=== PATIENT | male | born 1935 | race Two or more races ===

== ENCOUNTER 2017-02-10 10:51 | Inpatient (IN) | payer MEDICARE, OTHER ==
[~2017-02-10] VITALS: Ht 167.6 cm; Wt 100.0 kg
[~2017-02-10 10:51] MED LIST: ASPI-664 PO; ATOR40TA68 PO; CARV25TA79 PO; CLOP75TA27 PO; DONE10TA7 PO; FURO20TA3 PO; GLIM4TAB PO; HYDR-3671 PO; ICOS1CAP PO; ISOS120T15 PO; LOSA1TAB19 PO; SITA100T8 PO; TAMS0.4C2 PO; VORT10TA PO
[2017-02-10] MEDS ORDERED: ONDANSETRON 4 MG INJ IV STA (10:58)
[2017-02-10] MEDS ORDERED: morphine 4 MG/ML VIAL IV STA (10:58)
[2017-02-10 11:25] LABS: ADD SCAN DIFF NO
[2017-02-10 11:30] LABS: BASOPHIL # 0.1 10^3/ul (0.0-0.1); BASOPHILS % 0.7 % (0.0-2.0); EOSINOPHILS # 0.5 10^3/ul (0.0-0.5); EOSINOPHILS % 7.4 % (0.0-7.0); HEMATOCRIT 42.4 % (42.0-52.0); HEMOGLOBIN 13.2 g/dl (14.0-18.0); LYMPHOCYTES % 14.1 % (15.0-51.0); MEAN CORPUSCULAR HEMOGLOBIN 28.4 pg (29.0-33.0); MEAN CORPUSCULAR HGB CONC 31.1 g/dl (32.0-37.0); MEAN CORPUSCULAR VOLUME 91.4 fl (82.0-101.0); MONOCYTE # 0.7 10^3/ul (0.3-0.9); MONOCYTES % 9.5 % (0.0-11.0); NEUTROPHIL # 4.6 10^3/ul (1.6-7.5); NEUTROPHILS % 67.6 % (39.0-77.0); PLATELET COUNT 138 10^3/UL (140-415); RED BLOOD COUNT 4.64 10^6/ul (4.70-6.10); RED CELL DISTRIBUTION WIDTH 14.4 % (11.5-14.5); WHITE BLOOD COUNT 6.9 10^3/ul (4.8-10.8)
[2017-02-10 11:35] LABS: MEAN PLATELET VOLUME 10.4 fl (7.4-10.4)
--- NOTE | 2017-02-10 11:44 | RADRPT ---
PROCEDURE: XR Chest. CLINICAL INDICATION: Chest pain. TECHNIQUE: PA and Lateral views of the chest were obtained. COMPARISON: Chest x-ray 09/28/2013 02:09 p.m. FINDINGS: The soft tissues are normal. There are degenerative osteophytes in the thoracic spine. The heart i s enlarged. The cardiomediastinal silhouette and hilar structures are normal. The pulmonary vascula ture is increased. There is a left-sided aorta. There are perihilar and basilar infiltrates suspicio us for pulmonary edema. These were not identified on the prior study. The costophrenic angles are obscured. IMPRESSION: 1. Cardiomegaly with congestive heart failure and interstitial pulmonary edema developing since 09/07. 2. Small pleural effusions are not excluded. 3. Spondylosis of the thoracic spine. RPTAT:AAJJ Physician Zehra Date Time Electronically viewed and signed by Vasu Lenz Physician on 02/10/2017 11:44 LUCY/
[2017-02-10 11:57] LABS: INR 1.01; PROTIME 13.3 Sec (12.2-14.2)
[2017-02-10] MEDS ORDERED: FUROSEMIDE 40 MG INJ IV ONE (12:00)
[2017-02-10] MEDS ORDERED: ONDANSETRON 4 MG INJ IV PRN ×2 (12:00→13:00)
[2017-02-10] MEDS ORDERED: ACETAMINOPHEN 325 MG TAB PO PRN ×2 (12:00→13:00)
[2017-02-10 12:01] LABS: CALCIUM 9.1 mg/dl (8.4-10.2); CREATININE 3.35 mg/dl (0.61-1.24); POTASSIUM 5.2 mmol/L (3.5-5.1)
[2017-02-10 12:12] LABS: TROPONIN-I 0.018 ng/ml (0.00-0.12)
[2017-02-10 12:46] VITALS: TEMP 97.8
--- NOTE | 2017-02-10 12:47 | ERA ---
ER Documentation Chief Complaint Date/Time DATE: 02/10/17 TIME: 12:44 Chief Complaint cp x 2 hours HPI Patient is an 81-year-old male with hypertension and diabetes who presents with chest pain. Chest pain is been there for the past 2 hours. The patient was brought in by ambulance. The patient was given 2 sprays of nitroglycerin by paramedics which made his pain better. He was not given aspirin because he has an allergy. Upon review of old medical records this is the patient's third visit to the ER since 2012. ROS All systems reviewed and are negative except as per history of present illness. Medications Home Meds Reported Medications Atorvastatin* (Atorvastatin*) 40 Mg Tablet, 40 MG PO DAILY, #30 TAB 08/16/16 Aspirin* (Aspirin* EC) 81 Mg Tablet.dr, 81 MG PO DAILY, TAB 08/16/16 Glimepiride* (Glimepiride*) 4 Mg Tablet, 4 MG PO WITH BREAKFAST, TAB 08/16/16 Clopidogrel Bisulfate (Clopidogrel) 75 Mg Tablet, 75 MG PO DAILY, #30 TAB 08/16/16 Carvedilol* (Carvedilol*) 25 Mg Tablet, 25 MG PO BID, #60 TAB 08/16/16 Losartan-Hydrochlorothiazide (Losartan-HCTZ) 50-12.5 Mg Tab, 1 TAB PO DAILY, TAB 08/16/16 Tamsulosin Hcl* (Tamsulosin Hcl*) 0.4 Mg Cap.er.24h, 0.4 MG PO DAILY, CAP 08/16/16 Hydralazine Hcl* (Hydralazine Hcl*) 25 Mg Tab, 25 MG PO, #120 TAB 08/16/16 Donepezil* (Donepezil*) 10 Mg Tablet, 10 MG PO DAILY, #30 TAB 08/16/16 Isosorbide Mononitrate* (Isosorbide Mononitrate*) 120 Mg Tab.sr.24h, 120 MG PO DAILY, TAB.SA 08/16/16 Furosemide* (Furosemide*) 20 Mg Tablet, 20 MG PO DAILY, #60 TAB 08/16/16 Sitagliptin* (Januvia*) 100 Mg Tablet, 100 MG PO DAILY, #30 TAB 08/16/16 Vortioxetine Hydrobromide (Brintellix) 10 Mg Tablet, 10 MG PO DAILY, TAB 08/16/16 Icosapent Ethyl (VASCEPA) 1 Gm Capsule, 1 GM PO, CAP 08/16/16 Allergies Allergies: Coded Allergies: aspirin (Verified Allergy, Mild, rash, 02/10/17) PMhx/Soc History of Surgery: Yes (PART OF COLON REMOVED, HEART CATH WITH STENT) Anesthesia Reaction: No Hx Neurological Disorder: No Hx Respiratory Disorders: No Hx Cardiac Disorders: Yes (CAD) Hx Psychiatric Problems: No Hx Miscellaneous Medical Probl: Yes (DM) Hx Alcohol Use: No Hx Substance Use: No Hx Tobacco Use: No Smoking Status: Never smoker FmHx Family History: No diabetes Physical Exam Vitals Vital Signs Date Time Temp Pulse Resp B/P Pulse Ox O2 Delivery O2 Flow Rate FiO2 02/10/17 11:32 Nasal Cannula 3 02/10/17 10:51 97.8 54 18 174/73 88 Physical Exam Const: No acute distress Head: Atraumatic Eyes: Normal Conjunctiva ENT: Normal External Ears, Nose and Mouth. Neck: Full range of motion..~ No meningismus. Resp: Clear to auscultation bilaterally Cardio: Regular rate and rhythm, no murmurs Abd: Soft, non tender, non distended. Normal bowel sounds Skin: No petechiae or rashes Back: No midline or flank tenderness Ext: 2+ pitting edema bilateral lower extremity Neur: Awake and alert Psych: Normal Mood and Affect Result Diagram: 02/10/17 1108 02/10/17 1108 Results 24 hrs Laboratory Tests Test 02/10/17 11:08 White Blood Count 6.910^3/ul Red Blood Count 4.6410^6/ul Hemoglobin 13.2g/dl Hematocrit 42.4% Mean Corpuscular Volume 91.4fl Mean Corpuscular Hemoglobin 28.4pg Mean Corpuscular Hemoglobin Concent 31.1g/dl Red Cell Distribution Width 14.4% Platelet Count 30921^3/UL Mean Platelet Volume 10.4fl Neutrophils % 67.6% Lymphocytes % 14.1% Monocytes % 9.5% Eosinophils % 7.4% Basophils % 0.7% Nucleated Red Blood Cells % 0.0/100WBC Neutrophils # 4.610^3/ul Lymphocytes # 1.010^3/ul Monocytes # 0.710^3/ul Eosinophils # 0.510^3/ul Basophils # 0.110^3/ul Nucleated Red Blood Cells # 0.010^3/ul Prothrombin Time 13.3Sec Prothrombin Time Ratio 1.0 INR International Normalized Ratio 1.01 Activated Partial Thromboplast Time 28.0Sec Sodium Level 138mmol/L Potassium Level 5.2mmol/L Chloride Level 104mmol/L Carbon Dioxide Level 25mmol/L Anion Gap 14 Blood Urea Nitrogen 68mg/dl Creatinine 3.35mg/dl Glucose Level 270mg/dl Calcium Level 9.1mg/dl Troponin I 0.018ng/ml Current Medications Medications (Trade) Dose Ordered Sig/Tariq Route PRN Reason Start Time Stop Time Status Last Admin Dose Admin Morphine Sulfate (morphine) 4 mg ONCE STAT IV 02/10/17 10:58 02/10/17 11:00 DC 02/10/17 11:05 Ondansetron HCl (Zofran Inj) 4 mg ONCE STAT IV 02/10/17 10:58 02/10/17 11:00 DC 02/10/17 11:05 Furosemide (Lasix) 40 mg ONCE ONCE IV 02/10/17 12:00 02/10/17 12:01 DC 02/10/17 11:53 Ondansetron HCl (Zofran Inj) 4 mg ER BRIDGE PRN IV NAUSEA AND/OR VOMITING 02/10/17 12:00 02/11/17 11:59 Acetaminophen (Tylenol Tab) 650 mg ER BRIDGE PRN PO MILD PAIN/FEVER 02/10/17 12:00 02/11/17 11:59 Procedures/MDM EKG read by me: Rate/Rhythm: Regular rate and rhythm at a normal rate Intervals: Normal Impression: No evidence of ST elevations or depressions at this time PROCEDURE: XR Chest. CLINICAL INDICATION: Chest pain. TECHNIQUE: PA and Lateral views of the chest were obtained. COMPARISON: Chest x-ray 09/28/2013 02:09 p.m. FINDINGS: The soft tissues are normal. There are degenerative osteophytes in the thoracic spine. The heart is enlarged. The cardiomediastinal silhouette and hilar structures are normal. The pulmonary vasculature is increased. There is a left-sided aorta. There are perihilar and basilar infiltrates suspicious for pulmonary edema. These were not identified on the prior study. The costophrenic angles are obscured. IMPRESSION: 1. Cardiomegaly with congestive heart failure and interstitial pulmonary edema developing since 09/28/2013. 2. Small pleural effusions are not excluded. 3. Spondylosis of the thoracic spine. RPTAT:AAJJ Physician Zehra Date Time Electronically viewed and signed by Vasu Lenz Physician on 02/10/2017 11:44 Patient is a 81-year-old male with cardiac risk factors who presents with chest pain and shortness of breath. The patient also has bilateral lower extremity swelling. I am concerned about acute coronary syndrome as well as acute CHF. The patient will be admitted to the care of Dr. Coates from the panel team for further evaluation. The patient will be admitted to a telemetry bed. The patient has not been given aspirin because he has an allergy. He was given Lasix. Departure Diagnosis: Primary Impression: CHF (congestive heart failure) Qualified Code: I50.9 - Acute congestive heart failure, unspecified congestive heart failure type Additional Impression: Chest pain Qualified Code: R07.9 - Chest pain, unspecified type Condition: RADHA Nunez MD February 10, 2017 12:47
[2017-02-10] MEDS ORDERED: NA POLYST SULFON 15 GM/60 ML BTL PO ONE (13:00)
[2017-02-10] MEDS ORDERED: NACL 0.9% 3 ML SYG IV SCH (13:00)
[2017-02-10] MEDS ORDERED: MAGNESIUM HYDROXIDE 30ML CUP PO PRN (13:00)
[2017-02-10] MEDS ORDERED: HYDROCODONE/APAP (5/325) TAB PO PRN (13:00)
[2017-02-10] MEDS ORDERED: BISACODYL (EC) 5 MG TAB PO PRN (13:00)
[2017-02-10] MEDS ORDERED: HYPOGLYCEMIA PROTOCOL when Glucose is <70 mg/dL or symptomatic <90 mg/dL. XX ONE (13:00)
[2017-02-10] MEDS ORDERED: hydrALAzine 20 MG INJ IV PRN (13:00)
[2017-02-10] MEDS ORDERED: Discontinue Glyburide, Glipizide, and/or Glimepiride prior to starting Insulin XX ONE (13:00)
--- NOTE | 2017-02-10 13:29 | RADRPT ---
PROCEDURE: Renal US. CLINICAL INDICATION: Acute kidney injury. TECHNIQUE: Multiple sonographic images of the kidneys and urinary bladder were obtained. The imag es were reviewed on a PACS workstation. COMPARISON: No prior studies are available for comparison. FINDINGS: The right kidney measures 8.6 cm. The left kidney measures 9.3 cm. There is no renal mass. There is no hydronephrosis. There is no renal calculus. Renal parenchymal thickness is normal bilaterally. Both kidneys are hyperechoic consistent with medical renal disease. The perirenal regions are normal with no fluid collection or mass. The urinary bladder is unremarkable. IMPRESSION: 1. Bilateral hyperechoic kidneys consistent with medical renal disease. 2. Otherwise normal renal ultrasound. RPTAT: QQ .Negro Reynolds MD, Date Time Electronically viewed and signed by .Negro Reynolds MD, on 02/10/2017 13:29 .R/
[2017-02-10] MEDS ORDERED: GLUCOSE GEL 15 GRAM TUBE PO PRN ×2 (13:30)
[2017-02-10] MEDS ORDERED: GLUCOSE GEL 15 GRAM TUBE BUCCAL PRN (13:30)
[2017-02-10] MEDS ORDERED: GLUCAGON 1 MG INJ IM PRN (13:30)
[2017-02-10] MEDS ORDERED: DEXTROSE 50% 50 ML SYRINGE IV PRN ×2 (13:30)
--- NOTE | 2017-02-10 13:30 | CONS ---
Date/Time of Note Date/Time of Note DATE: 02/10/17 TIME: 13:10 Assessment/Plan Assessment/Plan Additional Assessment/Plan Acute decompensated congestive heart failure Coronary artery disease Acute kidney injury Hypertension Diabetes -Patient with evidence of decompensated congestive heart failure and worsening renal function. Would hold nephrotoxic medications. No IV diuretics as renal function permits, check renal ultrasound, renal consultation. To aspirin and Plavix therapy, statin therapy, beta-umesh as heart rate and blood pressure permits. Check echocardiogram Consultation Date/Type/Reason Admit Date/Time Type of Consultation: cv Reason for Consultation Shortness of breath progressing over the past 4-5 days Hx of Present Illness This is an 81-year-old male with past medical history of coronary artery disease , congestive heart failure, renal dysfunction who presents with progressive worsening shortness of breath over the past 4-5 days and lower extremity swelling. Symptoms are worse with exertion and improved at rest. He also complains of lower extremity edema as well progressing over the past 4-5 days. He has intermittent chest pain off and on over the past year. He tells me he is compliant with his medications but is not sure what medicines he takes. It is unclear he is compliant with diet. He was evaluated in [facility] at that time and recommendations were made for coronary angiogram. Secondary to cost, he came to [facility] for further evaluation and care. He did have an outpatient nuclear cardiac perfusion study performed in July with evidence of infarct, no ischemia. Patient had continued symptoms of shortness of breath and was planned for outpatient cardiac catheterization. Unfortunately, on day of procedure, patient with acute kidney injury and was recommended to follow-up with nephrology as an outpatient. 12 point review of systems was performed with all pertinent positives and negatives mentioned above and all else is negative Past Medical History Medical History: congestive heart failure, coronary artery disease, diabetes, hypertension, renal disease Past Surgical History Past Surgical Hx: angioplasty Family History Significant Family History: no pertinent family hx Social History Alcohol Use: none Smoking Status: Never smoker Other Social History Lives at home Exam/Review of Systems Vital Signs Vitals Vital Signs Date Time Temp Pulse Resp B/P Pulse Ox O2 Delivery O2 Flow Rate FiO2 02/10/17 12:46 97.8 79 18 173/83 98 Nasal Cannula 3.0 Exam nad Constitutional: alert, obese, oriented Head: normocephalic Neck: supple Respiratory: crackles/rales, other (Coarse breath sounds bilaterally, no wheezing) Cardiovascular: other (S1-S2 heard), regular rate and rhythm Gastrointestinal: bowel sounds, non-tender, soft Extremities: edema, other (No cyanosis) Results Result Diagram: 02/10/17 1108 02/10/17 1108 Results 24 hrs Laboratory Tests Test 02/10/17 11:08 White Blood Count 6.9 # Red Blood Count 4.64 L Hemoglobin 13.2 L Hematocrit 42.4 Mean Corpuscular Volume 91.4 Mean Corpuscular Hemoglobin 28.4 L Mean Corpuscular Hemoglobin Concent 31.1 L Red Cell Distribution Width 14.4 Platelet Count 138 L Mean Platelet Volume 10.4 # Neutrophils % 67.6 Lymphocytes % 14.1 L Monocytes % 9.5 Eosinophils % 7.4 H Basophils % 0.7 Nucleated Red Blood Cells % 0.0 Neutrophils # 4.6 Lymphocytes # 1.0 Monocytes # 0.7 Eosinophils # 0.5 Basophils # 0.1 Nucleated Red Blood Cells # 0.0 Prothrombin Time 13.3 Prothrombin Time Ratio 1.0 INR International Normalized Ratio 1.01 Activated Partial Thromboplast Time 28.0 Sodium Level 138 Potassium Level 5.2 H Chloride Level 104 Carbon Dioxide Level 25 Anion Gap 14 Blood Urea Nitrogen 68 H Creatinine 3.35 H Glucose Level 270 H Calcium Level 9.1 Troponin I 0.018 Medications Medications Current Medications Ondansetron HCl (Zofran Inj) 4 mg Q6H PRN IV NAUSEA AND/OR VOMITING; Start 02/10 at 13:00 Aspirin (Aspirin) 81 mg DAILY PO ; Start 02/11/17 at 09:00 Acetaminophen (Tylenol Tab) 650 mg Q6H PRN PO PAIN LEVEL 1-3 OR FEVER; Start at 13:00 Acetaminophen/ Hydrocodone Bitart ([place] (5/325)) 1 tab Q6H PRN PO PAIN LEVEL 4 -6; Start 02/10/17 at 13:00 Morphine Sulfate (morphine) 2 mg Q4H PRN IV PAIN LEVEL 7-10; Start 02/10/17 at 13:00 Magnesium Hydroxide (Milk Of Mag) 30 ml DAILY PRN PO CONSTIPATION; Start at 13:00 Bisacodyl (Dulcolax) 5 mg DAILY PRN PO CONSTIPATION; Start 02/10/17 at 13:00 Heparin Sodium (Porcine) (Heparin (5000 Units/0.5 ml)) 5,000 unit Q8 SC ; Start 02/10/17 at 14:00 Atorvastatin Calcium (Lipitor) 40 mg DAILY PO ; Start 02/11/17 at 09:00 Carvedilol (Coreg) 25 mg BID PO ; Start 02/10/17 at 21:00 Clopidogrel Bisulfate (plaVIX) 75 mg DAILY PO ; Start 02/11/17 at 09:00 Donepezil HCl (Aricept) 10 mg DAILY PO ; Start 02/11/17 at 09:00 Isosorbide Mononitrate (Imdur) 120 mg DAILY PO ; Start 02/11/17 at 09:00 Tamsulosin HCl (Flomax) 0.4 mg DAILY PO ; Start 02/11/17 at 09:00 Miscellaneous Information 100 mg DAILY PO ; Start 02/11/17 at 09:00; Status UNV Hydralazine HCl (Apresoline) 10 mg Q4H PRN IV SBP>160; Start 02/10/17 at 13:00 Cephalexin (Keflex) 500 mg Q8 PO ; Start 02/10/17 at 14:00 Hydralazine HCl (Apresoline) 25 mg TID PO ; Start 02/10/17 at 13:00 Insulin Glargine (Lantus) 20 unit DAILY@20 SC ; Start 02/10/17 at 20:00 Miscellaneous Information 1 ea NOTE XX ; Start 02/10/17 at 13:30 Glucose (Glutose) 15 gm Q15M PRN PO DECREASED GLUCOSE; Start 02/10/17 at 13:30 Glucose (Glutose) 22.5 gm Q15M PRN PO DECREASED GLUCOSE; Start 02/10/17 at 13:30 Dextrose (D50w Syringe) 25 ml Q15M PRN IV DECREASED GLUCOSE; Start 02/10/17 at 13:30 Dextrose (D50w Syringe) 50 ml Q15M PRN IV DECREASED GLUCOSE; Start 02/10/17 at 13:30 Glucagon (Glucagen) 1 mg Q15M PRN IM DECREASED GLUCOSE; Start 02/10/17 at 13:30 Glucose (Glutose) 15 gm Q15M PRN BUCCAL DECREASED GLUCOSE; Start 02/10/17 at 13: 30 Procedures Procedures ECG demonstrates sinus bradycardia at 57 bpm, QRS 92 ms, nonspecific STT wave abnormalities Balaji Vigil DO February 10, 2017 13:21
--- NOTE | 2017-02-10 13:38 | CONS ---
DATE OF ADMISSION: 02/10/2017 DATE OF CONSULTATION: 02/10/2017 TYPE OF CONSULTATION: Nephrology. REFERRING PHYSICIAN: Dr. Coates. REASON FOR CONSULTATION: Acute kidney injury versus acute kidney injury on chronic kidney disease, acute hyperkalemia, acute CHF exacerbation with fluid overload causing pulmonary edema. HISTORY OF PRESENT ILLNESS: This is an 81-year-old male with a past medical history of coronary art vicente disease, hypertension, history of previous cardiac catheterization and had a stent placement, di abetes mellitus, history of previous colon resection. The patient presented to the [facility] because he was brought in by paramedics with a complaint of chest pain, which has been going on for the last 2 hours. He was also complaining of shortness of breath. The patient was giv en 2 days of nitroglycerin supply by paramedics, which made his pain better. He was not given aspir in upon arrival to the emergency room. In the emergency room, he was complaining of shortness of br eath but his saturation was normal. The patient was noted to have BUN of 68, creatinine 3.3, potass ium 5.2 on admission, his chest x-ray shows congestive heart failure with interstitial pulmonary luis m ma and small pleural effusion. Renal has been consulted for acute kidney injury versus acute kidney injury on chronic kidney disease and pulmonary edema. He is also noted to have hyperkalemia. REVIEW OF SYSTEMS: Positive for chest pain, shortness of breath. Other review of systems has been obtained and is negative except what is mentioned in the history of present illness. 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 PAST SURGICAL HISTORY: History of cardiac catheterization with a stent placement, history of previo us colon surgery. SOCIAL HISTORY: At this time, patient denies any smoking, alcohol or recreational drug use. FAMILY HISTORY No smoking, alcohol or recreational. FAMILY HISTORY: No family history of chronic kidney disease in the family. He also denies any prev ious history of kidney stones. PHYSICAL EXAMINATION: VITAL SIGNS: Temperature 97.8, heart rate 79, respiration 18, blood pressure 123/83, saturation is 88% on room air, 98% on 3 liters nasal cannula. GENERAL: Awake, alert, in moderate distress due to hypoxemia and pulmonary edema. HEENT: The pupils are equal, round, reactive to light and accommodation. Extraocular muscles are i ntact. No sclerae icterus. NECK: Supple. Jugular venous distention up to the mid neck. No lymphadenopathy. LUNGS: Have bibasilar crackles present up to the mid lung zones. No wheezing. HEART: S1, S2, with regular rhythm, no murmur. ABDOMEN: Soft, nontender, nondistended. Bowel sounds are present. EXTREMITIES: There is 1 to 2+ pitting edema, no clubbing, no cyanosis. NEUROLOGICAL: Alert, awake x3, follows commands, cranial nerves II through XII intact. Strength se nsations are intact. Reflexes are normal. PSYCHIATRIC: Appropriate affect and mood. SKIN: No rash. LABORATORY DATA/DIAGNOSTIC IMAGING: Sodium 138, potassium 5.2, chloride 104, bicarbonate 25, BUN 68 , creatinine 3.3, glucose 270, calcium 9.1. Troponin x1 negative. PT 13.3, PTT 28, INR 1.01. WBC 6.9, hemoglobin 13.2, platelet count is 138. Chest x-ray done in the emergency room shows cardiomeg dheeraj with congestive heart failure and interstitial pulmonary edema, small pleural effusion. IMPRESSION: This is an 81-year-old male who has been getting admitted for acute congestive heart fa ilure exacerbation and acute pulmonary edema. He is noted to have acute renal failure with hyperkal emia and renal has been consulted for: 1. Acute kidney injury on possible chronic kidney disease secondary to cardiorenal syndrome in the setting of CHF exacerbations. 2. Acute pulmonary edema secondary to congestive heart failure exacerbation and renal failure. 3. Acute hyperkalemia secondary to acute kidney injury on chronic kidney disease. 4. 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 5. History of hypertension. 6. History of hyperlipidemia. 7. History of coronary artery disease, status post previous coronary stent placement. 8. History of diabetes mellitus type 2. PLAN: 1. The patient received Lasix 40 mg in the emergency room. I will order Lasix 20 mg IV b.i.d. 2. I will order his CKD workup including urine sodium, urine protein/creatinine ratio, urine eosino phils, uric acid, PSA which a.m. labs. 3. Continue the Lasix 20 mg IV b.i.d. 4. ____. Continue him on hydralazine 25 mg to 50 mg p.o. t.i.d. He is also started on Coreg 25 mg p.o. b.i.d. 5. IV hydralazine p.r.n. systolic blood pressure more than 160. 6. Renal ultrasound to better assess the kidney size and echogenicity and to rule out hydronephrosi s. Patient likely has chronic kidney disease. 7. The patient is currently seen in the emergency room and will be followed up along with his cours e in the hospital. Once again, thank you, Dr. Coates, for this consultation. Total time spent in this patient's evaluation making assessment and plan, coming up with consultatio n and recommendations, discussed with the patient's family at bedside and communicating with the [facility] staff took more than 90 minutes. Dictated By: CHANELL TRAYLOR MD, KP/KRISTINA Conf#: [id number] DID#: [id number]
[2017-02-10 13:40] VITALS: BP 200/88; PULSE 60; RESP 20
[2017-02-10 13:42] LABS: ADD UMIC YES; URINE BILIRUBIN (Dip) NEGATIVE (NEGATIVE); URINE BLOOD (Dip) TRACE (NEGATIVE); URINE COLOR LT. YELLOW (YELLOW); URINE KETONES (Dip) NEGATIVE (NEGATIVE); URINE LEUKOCYTE ESTERASE (Dip) NEGATIVE (NEGATIVE); URINE NITRITE (Dip) NEGATIVE (NEGATIVE); URINE TOTAL PROTEIN (Dip) 2+ (NEGATIVE); URINE UROBILINOGEN (Dip) 0.2 E.U./dL (0.1-1.0)
--- NOTE | 2017-02-10 13:45 | RADRPT ---
PROCEDURE: US Lower extremity Venous. CLINICAL INDICATION: B/L LE edema. TECHNIQUE: Multiple sonographic images of the bilateral lower extremity deep venous system was obt ained utilizing grayscale, color-flow, compressive sonography and doppler imaging with augmentation. The images were reviewed on a PACS workstation. COMPARISON: None. FINDINGS: There is normal compressibility and flow within the bilateral common femoral, deep femoral, superfic ial femoral and popliteal veins. The deep veins the calf were incompletely visualized. IMPRESSION: No sonographic evidence for deep venous thrombosis in the bilateral lower extremities. Physician Chris Date Time Electronically viewed and signed by Physician Chris on 02/10/2017 13:45 ML/
[2017-02-10 13:52] LABS: PROTEIN/CREAT RATIO 4.4 RATIO
[2017-02-10 13:54] LABS: THYROID STIMULATING HORMONE 2.18 MIU/L (0.465-4.680)
[2017-02-10 14:05] LABS: SQUAMOUS EPITHELIAL CELL,UR OCCASIONAL
[2017-02-10] MEDS: hydrALAzine 20 MG INJ IV PRN (14:11)
[2017-02-10] MEDS: HEPARIN 5,000 UNIT/0.5 ML VIAL SC SCH ×2 (14:21→22:12)
[2017-02-10 15:00] VITALS: BP 154/66; PULSE 59
--- NOTE | 2017-02-10 16:01 | RADRPT ---
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 Location: [id number] Ref. Physician: DEEPA STEWART Quality: Technically Difficult Study Procedures: Transthoracic echocardiogram with complete 2D, M-Mode, and doppler examination. Indications: Chest Pain. 2D/M Mode Doppler Measurement Value Normal Ranges Measurement Value Normal Ranges LVIDd 2D 5.4 3.5 - 5.6 cm AV Peak Jorden 1.4 m/sec LVIDs 2D 3.9 2.1 - 4.1 cm AV Peak PG 8.2 mmHg LVPWd 2D 1.1 0.6 - 1.1 cm LVOT Peak Jorden 0.6 m/sec IVSd 2D 1.1 0.6 - 1.1 cm LVOT Peak PG 1.4 mmHg AoR Diam 2D 2.7 2.0 - 3.7 cm MV E Peak Jorden 0.5 m/sec EDV 2D 143.4 cm3 MV A Peak Jorden 0.6 m/sec ESV 2D 58.6 cm3 MV E/A 0.9 LA Dimen 2D 4.1 2.3 - 4.0 cm MV Decel Time 174 msec MV Decel [place] 3 MV E/A 0.9 TR Peak Jorden 3.0 m/sec TR Peak PG 37.0 mmHg Findings Left Ventricle: Overall, lower limits of normal left ventricular systolic function. Not all segments visualized. Normal left ventricular cavity size. Left ventricular wall thickness upper limits of normal. Ejection fraction is visually estimated at 50 %. Tissue Doppler/Mitral Doppler indices are consistent with impaired relaxation (Stage I diastolic dysfunction). Right Ventricle: Normal right ventricular size. Normal right ventricular systolic function. Left Atrium: There is mild enlargement of left atrium. LA Dimension4.10 cm. Right Atrium: The right atrium is normal in size. Mitral Valve: Mild mitral leaflet calcification. Mild mitral annular calcification. Trace mitral regurgitation. Aortic Valve: No hemodynamically significant aortic stenosis by doppler. Aortic cusps appear mildly calcified. Trace aortic valve regurgitation. Tricuspid Valve: Normal appearance of the tricuspid valve. Estimated peak PA systolic pressure 40 mmHg. There is mild tricuspid regurgitation. Pulmonic Valve: There is trace pulmonic regurgitation. Pericardium: Normal pericardium with no significant pericardial effusion. Aorta: Normal aortic root. IVC: Normal size and normal respiratory collapse consistent with normal right atrial pressure. Conclusions 1.Overall, lower limits of normal left ventricular systolic function. Not all segments visualized. Normal left ventricular cavity size. Left ventricular wall thickness upper limits of normal. Ejection fraction is visually estimated at 50 %. Tissue Doppler/Mitral Doppler indices are consistent with impaired relaxation (Stage I diastolic dysfunction). 2.Normal right ventricular size. Normal right ventricular systolic function. 3.There is mild enlargement of left atrium. LA Dimension4.10 cm. 4.The right atrium is normal in size. 5.Estimated peak PA systolic pressure 40 mmHg. There is mild tricuspid regurgitation. 6.No significant valvular stenosis or regurgitation seen of remaining visualized valves. 7.Normal pericardium with no significant pericardial effusion. Electronically Signed By: Balaji Vigil 10-Feb-2017 16:00: Patient Name: ANIBAL VASQUEZ Study Date: 10-Feb-2017 [id number]
[2017-02-10 16:15] VITALS: PULSE 59
[2017-02-10] MEDS: CEPHALEXIN 500 MG CAP PO SCH ×2 (16:26→21:52)
[2017-02-10 17:12] VITALS: Ht 167.6 cm; Wt 100.0 kg
--- NOTE | 2017-02-10 17:33 | HP ---
DATE OF ADMISSION: 02/10/2017 TIME OF EVALUATION: 12:30 p.m. REASON FOR ADMISSION: Chest pain. CONSULTANTS: 1. Dr. Balaji Vigil, Cardiology. 2. Dr. Jose Luis Pickett, Nephrology. HISTORY OF PRESENT ILLNESS: This is an 81-year-old Malaysian male with significant past medical history including coronary artery disease with a stent placement, CKD, essential hypertension, DM type II, and morbid obesity, who came to the emergency room with chief complaint of chest pain that started all of a sudden. The patient verbalized the chest pain as substernal with radiation to bilateral upper extremities. The patient also verbalized associated shortness of breath. The patient denied any radiation of the pain to the jaw. The patient denied any associated nausea, diaphoresis, or vomiting. The patient was also complaining of worsening bilateral lower extremity edema. In the emergency room, the patient underwent a chest x-ray that showed cardiomegaly with congestive heart failure, interstitial pulmonary edema developing compared to the CXR on 09/28/2013. The patient's venous Doppler study was negative for any bilateral lower extremity venous Doppler study that was negative for any DVT. The patient was noticed to be in kidney failure with a BUN and creatinine of 68 and 3.375 respectively. The patient's serum blood glucose was 270. The patient was also noticed to have hyperkalemia with a potassium of 5.2. In the emergency room, the patient was treated with oral aspirin and Kayexalate along with hydralazine for blood pressure control. PAST MEDICAL HISTORY: CAD, type 2 diabetes mellitus, essential hypertension, chronic kidney disease, obesity, dyslipidemia. PAST SURGICAL HISTORY: Coronary artery stent placement, segmental colon resection. HOME MEDICATIONS: 1. Donepezil 10 mg p.o. daily. 2. Tamsulosin 0.4 mg p.o. daily. 3. Plavix 75 mg p.o. daily. 4. Atorvastatin 40 mg p.o. daily. 5. Coreg 25 mg p.o. b.i.d. 6. Hydralazine 20 mg p.o. daily. 7. Vascepa 1 gram p.o. daily. 8. Isosorbide mononitrate 120 mg p.o. daily. 9. Losartan with hydrochlorothiazide 50/12.5 mg 1 tablet p.o. daily. 10. Aspirin 81 mg p.o. daily. 11. Brintellix 10 mg p.o. daily. 12. Lasix 20 mg p.o. daily. 13. Glimepiride 4 mg p.o. with breakfast. 14. Januvia 100 mg p.o. daily. ALLERGIES: ASPIRIN. SOCIAL HISTORY: The patient lives at home. Denied any use of tobacco, alcohol , or illicit drug use. REVIEW OF SYSTEMS: A 12-point review of systems was made and the review of systems are negative other than what is mentioned in the history of present illness. PHYSICAL EXAMINATION: VITAL SIGNS: Temperature 97.8, pulse rate of 79, respiratory rate 18, blood pressure 123/83, oxygen saturation 98% on low flow O2. GENERAL: This is morbidly obese male lying in bed in no apparent distress. HEENT: Head: Normocephalic and atraumatic. Eyes: Anicteric sclerae. Conjunctivae clear. ENT: Nasal septum is midline. Oral mucosa is dry. NECK: Supple. No JVD noticed. RESPIRATORY: Bilateral diminished breath sounds. A few fine rales heard bilaterally. No use of accessory muscles of respiration. No wheezing. CARDIAC: Regular rate and rhythm. GASTROINTESTINAL: S1, S2 heard. ABDOMEN: Obese. Bowel sounds hypoactive in all 4 quadrants. GENITOURINARY: Deferred. EXTREMITIES: No cyanosis. No clubbing. Bilateral lower extremity 2 to 3+ pitting edema. Pedal pulses diminished. Bilateral lower extremity erythema. NEUROLOGIC: The patient is awake, alert, and oriented. Cranial nerves are grossly intact. The patient is primarily Malaysian speaking. A certified Malaysian historic interpreter was used during the interview. LABORATORY AND DIAGNOSTIC DATA: WBC 6.9, hemoglobin 13.0, hematocrit 42.4, platelet count 138. Sodium 130, potassium 5.0, chloride 104, carbon dioxide 27 , anion gap 14, BUN 50, creatinine 3.35, glucose 270, calcium 9.1. Troponin is 0.018. BNP 1230. TSH 2.180. Urinalysis: Urine nitrite negative, urine leukocyte esterase negative. Urine glucose 0.25%. Urine total protein 2+. IMPRESSION: This is an 81-year-old Malaysian male with multiple comorbidities, who came to the emergency room with chief complaint of chest pain, was found to have evidence of congestive heart failure, who will be admitted here for further treatment and evaluation. ASSESSMENT AND PLAN: 1. Chest pain. To rule out acute coronary syndrome. The patient has multiple comorbidities including prior history of coronary artery disease with stent placement. The patient will continue on antiplatelet therapy. Serial troponins will be obtained. A cardiology consult will be obtained. A 2D echocardiogram will be obtained to evaluate left ventricular ejection fraction. 2. Acute respiratory failure. Hypoxic. Most probably secondary to underlying congestive heart failure exacerbation. Systolic versus diastolic dysfunction. The patient will be adequately diuresed while carefully monitoring the patient 's renal function. 3. Accelerated hypertension. The patient will be started on antihypertensives including p.r.n. antihypertensives for high blood pressure control. 4. Type 2 diabetes mellitus. Blood sugars uncontrolled. The patient will remain on sliding scale insulin along with premeal and Lantus insulin. A hemoglobin A1c will be obtained to evaluate the blood glucose control over the past few days. 5. Hyperkalemia. The patient also received a single dose of potassium exchange resin. 6. Acute on chronic kidney disease. The patient has underlying chronic kidney disease. The patient was found to have elevated BUN and creatinine more from his baseline. The patient will be followed by nephrology. 7. Bilateral lower extremity edema. Etiology unclear. Bilateral lower extremity venous Doppler study is negative for any DVT will be obtained. The patient will be adequately diuresed. He will be started on antibiotics for B/L LE erythema suggesting cellulitis. 8. Dyslipidemia. The patient will be resumed on statins. A fasting lipid panel will be obtained. Plan. The patient will be admitted to inpatient telemetry floor. The patient will be started on a carbohydrate-controlled, low-cholesterol, low-sodium diet. The patient will remain a FULL CODE. Activities will be with assist. The rest of the patient's management will be based on the clinical course, the results of diagnostic studies, and input sfrom consultants. Based on the patient's clinical presentation, he most probably requires at least 2 midnights' stay for further management and evaluation of his clinical presentation. The case and management of this patient was fully discussed with Dr. Carson. DEEPA CARSON MD, AM/KRISTINA Conf#: [id number] DID#: [id number] VIRGEN
[2017-02-10] MEDS: FUROSEMIDE 20 MG INJ IV SCH (17:42)
[2017-02-10] MEDS: INSULIN ASPART [NOVOLOG] 3 ML PEN SC SCH ×3 (17:49→21:00)
[2017-02-10 19:24] LABS: TROPONIN-I 0.026 ng/ml (0.00-0.12)
[2017-02-10 19:27] LABS: CK-MB 1.13 ng/ml (0.0-2.4)
[2017-02-10 20:00] VITALS: BP 133/60; RESP 18
[2017-02-10 20:10] VITALS: PULSE 67
[2017-02-10] MEDS: morphine 2 MG INJ IV PRN (21:51)
[2017-02-10] MEDS: ISOSORBIDE MONONITRATE(SR)30 MG TAB PO SCH (21:52)
[2017-02-10] MEDS: INSULIN GLARGINE [LANtus] 3 ML PEN SC SCH (22:11)
[2017-02-10 23:30] LABS: TROPONIN-I 0.037 ng/ml (0.00-0.12)
[2017-02-10 23:34] LABS: CK-MB 1.21 ng/ml (0.0-2.4)
[2017-02-11] VITALS (13 sets, daily range): BP systolic 129–160; BP diastolic 59–73; PULSE 58–69; RESP 18–20
[2017-02-11] MEDS: ACCUCHECK AT 2AM (Patients on SS coverage) XX SCH (02:00)
[2017-02-11] MEDS: CEPHALEXIN 500 MG CAP PO SCH ×3 (06:35→21:53)
[2017-02-11] MEDS: FUROSEMIDE 20 MG INJ IV SCH ×2 (06:35→17:16)
[2017-02-11] MEDS: HEPARIN 5,000 UNIT/0.5 ML VIAL SC SCH ×3 (06:40→21:58)
[2017-02-11 07:14] LABS: ADD SCAN DIFF NO
[2017-02-11 07:19] LABS: BASOPHILS % 0.5 % (0.0-2.0); EOSINOPHILS # 0.5 10^3/ul (0.0-0.5); EOSINOPHILS % 6.8 % (0.0-7.0); HEMATOCRIT 42.7 % (42.0-52.0); HEMOGLOBIN 13.3 g/dl (14.0-18.0); LYMPHOCYTES % 13.5 % (15.0-51.0); MEAN CORPUSCULAR HEMOGLOBIN 28.4 pg (29.0-33.0); MEAN CORPUSCULAR HGB CONC 31.1 g/dl (32.0-37.0); MEAN PLATELET VOLUME 10.3 fl (7.4-10.4); MONOCYTE # 0.6 10^3/ul (0.3-0.9); MONOCYTES % 8.2 % (0.0-11.0); NEUTROPHIL # 5.3 10^3/ul (1.6-7.5); NEUTROPHILS % 70.3 % (39.0-77.0); PLATELET COUNT 140 10^3/UL (140-415); RED BLOOD COUNT 4.69 10^6/ul (4.70-6.10); RED CELL DISTRIBUTION WIDTH 14.6 % (11.5-14.5); WHITE BLOOD COUNT 7.5 10^3/ul (4.8-10.8)
[2017-02-11 07:43] LABS: ALBUMIN 3.7 g/dl (3.3-4.9); ALBUMIN/GLOBULIN RATIO 0.97; BILIRUBIN,INDIRECT 0.4 mg/dl (0-1.1); BILIRUBIN,TOTAL 0.4 mg/dl (0.2-1.3); CALCIUM 8.8 mg/dl (8.4-10.2); CHOL/HDL RATIO 4.5 RATIO; CREATININE 3.22 mg/dl (0.61-1.24); PHOSPHORUS 4.9 mg/dl (2.5-4.9); POTASSIUM 5.4 mmol/L (3.5-5.1); TOTAL PROTEIN 7.5 g/dl (6.1-8.1)
[2017-02-11 07:51] LABS: TROPONIN-I 0.057 ng/ml (0.00-0.12)
[2017-02-11] MEDS: INSULIN ASPART [NOVOLOG] 3 ML PEN SC SCH ×7 (08:00→21:00)
[2017-02-11 08:25] LABS: URIC ACID 7.7 mg/dl (3.1-7.9)
[2017-02-11] MEDS: TAMSULOSIN (SR) 0.4 MG CAP PO SCH (08:49)
[2017-02-11] MEDS: ASPIRIN 81 MG TAB PO SCH (08:49)
[2017-02-11] MEDS: ATORVASTATIN 40 MG TAB PO SCH (08:50)
[2017-02-11] MEDS: CLOPIDOGREL 75 MG TAB PO SCH (08:50)
[2017-02-11] MEDS: DONEPEZIL 10 MG TAB PO SCH (08:50)
[2017-02-11] MEDS: LINAGLIPTIN 5 MG TABLET PO SCH (08:50)
[2017-02-11] MEDS: ISOSORBIDE MONONITRATE(SR)30 MG TAB PO SCH ×2 (08:51→20:56)
[2017-02-11 08:56] LABS: PROSTATE SPECIFIC ANTIGEN 3.1 ng/ml (0.0-4.0)
[2017-02-11] MEDS ORDERED: ASPIRIN (EC) 81 MG TAB PO SCH (09:00)
[2017-02-11] MEDS ORDERED: ISOSORBIDE MONONITRATE(SR)60 MG TAB PO SCH (09:00)
[2017-02-11] MEDS ORDERED: NA POLYST SULFON 15 GM/60 ML BTL PO ONE ×2 (09:30→12:00)
--- NOTE | 2017-02-11 10:00 | PN ---
Date/Time of Note Date/Time of Note DATE: 02/11/17 TIME: 09:56 Assessment/Plan VTE Prophylaxis VTE Prophylaxis Intervention: heparin Lines/Catheters IV [facility] Urinary Cath still in place: No Assessment/Plan Chief Complaint/Hosp Course Assessment and plan 1. Chest pain. Serial troponins negative. Patient also noted with echocardiogram ejection fraction 50% with stage I diastolic dysfunction. Continue on beta-umesh and statin medication as well as antiplatelet therapy 2. Acute respiratory failure. Secondary to CHF exacerbation. Diuresis per senior application security consultant. Monitor renal function. 3. Acute on chronic kidney disease. Medications to be renally dosed. Follow- up with nephrology recommendations. 4. Accelerated hypertension. Continue antihypertensives and adjust as needed 4. Type 2 diabetes. Continue insulin. Will adjust as needed. Of note A1c was seen at 8.6. 6. Hyperkalemia. Noted with renal insufficiency. Provide with Kayexalate as needed. Follow-up with nephrology. Monitor level 7. Bilateral lower extremity edema. Patient with negative Doppler for DVT on bilateral lower extremities. Diuresis per senior application security consultant. On a BX for possible cellulitis 8. Dyslipidemia. Continue on statin medication Disposition and plan: Await for clinical improvement of respiratory status. Titrate off O2 as tolerated. Physical therapy to follow. Discussed plan of care with Problems: Subjective 24 Hr Interval Summary Free Text/Dictation Seen on 2 L nasal cannula and tolerating well. No reports of chest pain at this time. Exam/Review of Systems Vital Signs Vitals Vital Signs Date Time Temp Pulse Resp B/P Pulse Ox O2 Delivery O2 Flow Rate FiO2 02/11/17 08:00 Nasal Cannula 2.0 02/11/17 08:00 69 02/11/17 07:45 98.4 18 129/63 94 Intake and Output 02/10/17 02/10/17 02/11/17 15:00 23:00 07:00 Intake Total 520 ml 200 ml Output Total 700 ml 900 ml 1250 ml Balance -700 ml -380 ml -1050 ml Exam Constitutional: alert Psych: nl mood/affect Head: normocephalic Eyes: nl conjunctiva Neck: non-tender, supple, No jvd Respiratory: other (Minimally diminished at lung bases. No obvious wheezing) Cardiovascular: other ( remains regular rate at this time.) Gastrointestinal: non-tender, soft Extremities: edema Neurological: GOLF COURSE MECH[employer]IC II-XII intact, nl mental status, nl speech (Seen bilateral lower extremities +2-+3) Skin: No rash or lesions Results Result Diagram: 02/11/17 0628 02/11/17 0628 Results 24 hrs Laboratory Tests Test 02/10/17 11:08 02/10/17 13:03 02/10/17 14:53 02/10/17 17:46 White Blood Count 6.9 # Red Blood Count 4.64 L Hemoglobin 13.2 L Hematocrit 42.4 Mean Corpuscular Volume 91.4 Mean Corpuscular Hemoglobin 28.4 L Mean Corpuscular Hemoglobin Concent 31.1 L Red Cell Distribution Width 14.4 Platelet Count 138 L Mean Platelet Volume 10.4 # Neutrophils % 67.6 Lymphocytes % 14.1 L Monocytes % 9.5 Eosinophils % 7.4 H Basophils % 0.7 Nucleated Red Blood Cells % 0.0 Neutrophils # 4.6 Lymphocytes # 1.0 Monocytes # 0.7 Eosinophils # 0.5 Basophils # 0.1 Nucleated Red Blood Cells # 0.0 Prothrombin Time 13.3 Prothrombin Time Ratio 1.0 INR International Normalized Ratio 1.01 Activated Partial Thromboplast Time 28.0 Sodium Level 138 Potassium Level 5.2 H Chloride Level 104 Carbon Dioxide Level 25 Anion Gap 14 Blood Urea Nitrogen 68 H Creatinine 3.35 H Glucose Level 270 H Hemoglobin A1c 8.6 H Calcium Level 9.1 Troponin I 0.018 B-Type Natriuretic Peptide 1230 H Thyroid Stimulating Hormone (TSH) 2.180 Urine Color LT. YELLOW Urine Clarity CLEAR Urine pH 6.0 Urine Specific [place] 1.015 Urine Ketones NEGATIVE Urine Nitrite NEGATIVE Urine Bilirubin NEGATIVE Urine Urobilinogen 0.2 E.U./dL Urine Leukocyte Esterase NEGATIVE Urine Microscopic RBC 2-5 Urine Microscopic WBC NONE SEEN Urine Squamous Epithelial Cells OCCASIONAL Urine Eosinophils % 0.0 Urine Hemoglobin TRACE Urine Random Creatinine 25.87 Urine Random Sodium 124 H Urine Protein/Creatinine Ratio 4.40 Urine Glucose 0.25% H Urine Total Protein 114.0 H Bedside Glucose 170 157 Test 02/10/17 18:16 02/10/17 21:55 02/10/17 22:51 02/11/17 06:28 Creatine Kinase 25 28 Creatine Kinase Index 4.5 4.3 Creatinine Kinase MB (Mass) 1.13 1.21 Troponin I 0.026 0.037 0.057 Free Thyroxine 1.44 Bedside Glucose 115 White Blood Count 7.5 Red Blood Count 4.69 L Hemoglobin 13.3 L Hematocrit 42.7 Mean Corpuscular Volume 91.0 Mean Corpuscular Hemoglobin 28.4 L Mean Corpuscular Hemoglobin Concent 31.1 L Red Cell Distribution Width 14.6 H Platelet Count 140 Mean Platelet Volume 10.3 Neutrophils % 70.3 Lymphocytes % 13.5 L Monocytes % 8.2 Eosinophils % 6.8 Basophils % 0.5 Nucleated Red Blood Cells % 0.0 Neutrophils # 5.3 Lymphocytes # 1.0 Monocytes # 0.6 Eosinophils # 0.5 Basophils # 0.0 Nucleated Red Blood Cells # 0.0 Sodium Level 137 Potassium Level 5.4 H Chloride Level 104 Carbon Dioxide Level 28 Anion Gap 10 Blood Urea Nitrogen 68 H Creatinine 3.22 H Glucose Level 141 # Uric Acid 7.7 Calcium Level 8.8 Phosphorus Level 4.9 Magnesium Level 2.0 Total Bilirubin 0.4 Direct Bilirubin 0.00 Indirect Bilirubin 0.4 Aspartate Amino Transf (AST/SGOT) 13 L Alanine Aminotransferase (ALT/SGPT) 22 Alkaline Phosphatase 63 Total Protein 7.5 Albumin 3.7 Globulin 3.80 H Albumin/Globulin Ratio 0.97 Triglycerides Level 163 H Cholesterol Level 203 H LDL Cholesterol, Calculated 125 HDL Cholesterol 45 Cholesterol/HDL Ratio 4.5 Prostate Specific Antigen 3.1 Test 02/11/17 07:45 Bedside Glucose 111 Medications Medications Current Medications Ondansetron HCl (Zofran Inj) 4 mg Q6H PRN IV NAUSEA AND/OR VOMITING; Start 02/10 at 13:00 Aspirin (Aspirin) 81 mg DAILY PO Last administered on 02/11/17 08:49; Admin Dose 81 MG; Start 02/11/17 at 09:00 Acetaminophen (Tylenol Tab) 650 mg Q6H PRN PO PAIN LEVEL 1-3 OR FEVER; Start at 13:00 Acetaminophen/ Hydrocodone Bitart ([place] (5/325)) 1 tab Q6H PRN PO PAIN LEVEL 4 -6; Start 02/10/17 at 13:00 Morphine Sulfate (morphine) 2 mg Q4H PRN IV PAIN LEVEL 7-10 Last administered on 02/10/17 21:51; Admin Dose 2 MG; Start 02/10/17 at 13:00 Magnesium Hydroxide (Milk Of Mag) 30 ml DAILY PRN PO CONSTIPATION; Start at 13:00 Bisacodyl (Dulcolax) 5 mg DAILY PRN PO CONSTIPATION; Start 02/10/17 at 13:00 Heparin Sodium (Porcine) (Heparin (5000 Units/0.5 ml)) 5,000 unit Q8 SC Last administered on 02/11/17 06:40; Admin Dose 5,000 UNIT; Start 02/10/17 at 14:00 Atorvastatin Calcium (Lipitor) 40 mg DAILY PO Last administered on 02/11/17 08: 50; Admin Dose 40 MG; Start 02/11/17 at 09:00 Carvedilol (Coreg) 25 mg BID PO Last administered on 02/11/17 08:51; Admin Dose 25 MG; Start 02/10/17 at 21:00 Clopidogrel Bisulfate (plaVIX) 75 mg DAILY PO Last administered on 02/11/17 08: 50; Admin Dose 75 MG; Start 02/11/17 at 09:00 Donepezil HCl (Aricept) 10 mg DAILY PO Last administered on 02/11/17 08:50; Admin Dose 10 MG; Start 02/11/17 at 09:00 Tamsulosin HCl (Flomax) 0.4 mg DAILY PO Last administered on 02/11/17 08:49; Admin Dose 0.4 MG; Start 02/11/17 at 09:00 Linagliptin (Tradjenta) 5 mg DAILY PO Last administered on 02/11/17 08:50; Admin Dose 5 MG; Start 02/11/17 at 09:00 Hydralazine HCl (Apresoline) 10 mg Q4H PRN IV SBP>160 Last administered on 14:11; Admin Dose 10 MG; Start 02/10/17 at 13:00 Cephalexin (Keflex) 500 mg Q8 PO Last administered on 02/11/17 06:35; Admin Dose 500 MG; Start 02/10/17 at 14:00 Hydralazine HCl (Apresoline) 25 mg TID PO Last administered on 02/10/17 21:53; Admin Dose 25 MG; Start 02/10/17 at 13:00 Insulin Glargine (Lantus) 20 unit DAILY@20 SC Last administered on 02/10/17 22: 11; Admin Dose 20 UNIT; Start 02/10/17 at 20:00 Miscellaneous Information 1 ea NOTE XX ; Start 02/10/17 at 13:30 Glucose (Glutose) 15 gm Q15M PRN PO DECREASED GLUCOSE; Start 02/10/17 at 13:30 Glucose (Glutose) 22.5 gm Q15M PRN PO DECREASED GLUCOSE; Start 02/10/17 at 13:30 Dextrose (D50w Syringe) 25 ml Q15M PRN IV DECREASED GLUCOSE; Start 02/10/17 at 13:30 Dextrose (D50w Syringe) 50 ml Q15M PRN IV DECREASED GLUCOSE; Start 02/10/17 at 13:30 Glucagon (Glucagen) 1 mg Q15M PRN IM DECREASED GLUCOSE; Start 02/10/17 at 13:30 Glucose (Glutose) 15 gm Q15M PRN BUCCAL DECREASED GLUCOSE; Start 02/10/17 at 13: 30 Diagnostic Test (Pha) (Accu-Chek) 1 ea 02 XX ; Start 02/11/17 at 02:00 Isosorbide Mononitrate (Imdur) 30 mg BID PO Last administered on 02/11/17 08:51 ; Admin Dose 30 MG; Start 02/10/17 at 21:00 SIMBA DUNCAN February 11, 2017 10:00
--- NOTE | 2017-02-11 11:44 | CONS ---
Date/Time of Note Date/Time of Note DATE: 02/11/17 TIME: 11:40 Assessment/Plan Assessment/Plan Additional Assessment/Plan Acute decompensated systolic and diastolic congestive heart failure Coronary artery disease Acute kidney injury Hypertension Diabetes -Patient with improvement in shortness of breath since admission. Ideally, would continue IV diuretics if okay by our nephrology colleagues. No MERLE inhibitor secondary to acute kidney injury and hyperkalemia. Continue dual antiplatelet therapy, statin, beta-umesh. As mentioned, patient was planned for outpatient cardiac catheterization but secondary to renal issues, this was not performed. Given his rising creatinine, would pursue aggressive medical management at the current time. Consultation Date/Type/Reason Admit Date/Time February 10, 2017 at 16:12 Initial Consult Date Type of Consultation: cv 24 HR Interval Summary Free Text/Dictation Shortness of breath is better. Denies any current chest pain Exam/Review of Systems Vital Signs Vitals Vital Signs Date Time Temp Pulse Resp B/P Pulse Ox O2 Delivery O2 Flow Rate FiO2 02/11/17 08:00 Nasal Cannula 2.0 02/11/17 08:00 69 02/11/17 07:45 98.4 18 129/63 94 Intake and Output 02/10/17 02/10/17 02/11/17 15:00 23:00 07:00 Intake Total 520 ml 200 ml Output Total 700 ml 900 ml 1250 ml Balance -700 ml -380 ml -1050 ml Exam Sleeping but arousable, no apparent distress, following commands Head: normocephalic Neck: supple Respiratory: other (Coarse breath sounds bilaterally with crackles and rhonchi heard) Cardiovascular: other (S1-S2 heard), regular rate and rhythm Gastrointestinal: bowel sounds, non-tender, soft Extremities: edema Results Result Diagram: 02/11/17 0628 02/11/17 0628 Results 24 hrs Laboratory Tests Test 02/10/17 13:03 02/10/17 14:53 02/10/17 17:46 02/10/17 18:16 Urine Color LT. YELLOW Urine Clarity CLEAR Urine pH 6.0 Urine Specific [place] 1.015 Urine Ketones NEGATIVE Urine Nitrite NEGATIVE Urine Bilirubin NEGATIVE Urine Urobilinogen 0.2 E.U./dL Urine Leukocyte Esterase NEGATIVE Urine Microscopic RBC 2-5 Urine Microscopic WBC NONE SEEN Urine Squamous Epithelial Cells OCCASIONAL Urine Eosinophils % 0.0 Urine Hemoglobin TRACE Urine Random Creatinine 25.87 Urine Random Sodium 124 H Urine Protein/Creatinine Ratio 4.40 Urine Glucose 0.25% H Urine Total Protein 114.0 H Bedside Glucose 170 157 Creatine Kinase 25 Creatine Kinase Index 4.5 Creatinine Kinase MB (Mass) 1.13 Troponin I 0.026 Free Thyroxine 1.44 Test 02/10/17 21:55 02/10/17 22:51 02/11/17 06:28 02/11/17 07:45 Bedside Glucose 115 111 Creatine Kinase 28 Creatine Kinase Index 4.3 Creatinine Kinase MB (Mass) 1.21 Troponin I 0.037 0.057 White Blood Count 7.5 Red Blood Count 4.69 L Hemoglobin 13.3 L Hematocrit 42.7 Mean Corpuscular Volume 91.0 Mean Corpuscular Hemoglobin 28.4 L Mean Corpuscular Hemoglobin Concent 31.1 L Red Cell Distribution Width 14.6 H Platelet Count 140 Mean Platelet Volume 10.3 Neutrophils % 70.3 Lymphocytes % 13.5 L Monocytes % 8.2 Eosinophils % 6.8 Basophils % 0.5 Nucleated Red Blood Cells % 0.0 Neutrophils # 5.3 Lymphocytes # 1.0 Monocytes # 0.6 Eosinophils # 0.5 Basophils # 0.0 Nucleated Red Blood Cells # 0.0 Sodium Level 137 Potassium Level 5.4 H Chloride Level 104 Carbon Dioxide Level 28 Anion Gap 10 Blood Urea Nitrogen 68 H Creatinine 3.22 H Glucose Level 141 # Uric Acid 7.7 Calcium Level 8.8 Phosphorus Level 4.9 Magnesium Level 2.0 Total Bilirubin 0.4 Direct Bilirubin 0.00 Indirect Bilirubin 0.4 Aspartate Amino Transf (AST/SGOT) 13 L Alanine Aminotransferase (ALT/SGPT) 22 Alkaline Phosphatase 63 Total Protein 7.5 Albumin 3.7 Globulin 3.80 H Albumin/Globulin Ratio 0.97 Triglycerides Level 163 H Cholesterol Level 203 H LDL Cholesterol, Calculated 125 HDL Cholesterol 45 Cholesterol/HDL Ratio 4.5 Prostate Specific Antigen 3.1 Medications Medications Current Medications Ondansetron HCl (Zofran Inj) 4 mg Q6H PRN IV NAUSEA AND/OR VOMITING; Start 02/10 at 13:00 Aspirin (Aspirin) 81 mg DAILY PO Last administered on 02/11/17t 08:49; Admin Dose 81 MG; Start 02/11/17 at 09:00 Acetaminophen (Tylenol Tab) 650 mg Q6H PRN PO PAIN LEVEL 1-3 OR FEVER; Start at 13:00 Acetaminophen/ Hydrocodone Bitart ([place] (5/325)) 1 tab Q6H PRN PO PAIN LEVEL 4 -6; Start 02/10/17 at 13:00 Morphine Sulfate (morphine) 2 mg Q4H PRN IV PAIN LEVEL 7-10 Last administered on 02/10/17 21:51; Admin Dose 2 MG; Start 02/10/17 at 13:00 Magnesium Hydroxide (Milk Of Mag) 30 ml DAILY PRN PO CONSTIPATION; Start at 13:00 Bisacodyl (Dulcolax) 5 mg DAILY PRN PO CONSTIPATION; Start 02/10/17 at 13:00 Heparin Sodium (Porcine) (Heparin (5000 Units/0.5 ml)) 5,000 unit Q8 SC Last administered on 02/11/17 06:40; Admin Dose 5,000 UNIT; Start 02/10/17 at 14:00 Atorvastatin Calcium (Lipitor) 40 mg DAILY PO Last administered on 02/11/17 08: 50; Admin Dose 40 MG; Start 02/11/17 at 09:00 Carvedilol (Coreg) 25 mg BID PO Last administered on 02/11/17 08:51; Admin Dose 25 MG; Start 02/10/17 at 21:00 Clopidogrel Bisulfate (plaVIX) 75 mg DAILY PO Last administered on 02/11/17 08: 50; Admin Dose 75 MG; Start 02/11/17 at 09:00 Donepezil HCl (Aricept) 10 mg DAILY PO Last administered on 02/11/17 08:50; Admin Dose 10 MG; Start 02/11/17 at 09:00 Tamsulosin HCl (Flomax) 0.4 mg DAILY PO Last administered on 02/11/17 08:49; Admin Dose 0.4 MG; Start 02/11/17 at 09:00 Linagliptin (Tradjenta) 5 mg DAILY PO Last administered on 02/11/17 08:50; Admin Dose 5 MG; Start 02/11/17 at 09:00 Hydralazine HCl (Apresoline) 10 mg Q4H PRN IV SBP>160 Last administered on 14:11; Admin Dose 10 MG; Start 02/10/17 at 13:00 Cephalexin (Keflex) 500 mg Q8 PO Last administered on 02/11/17 06:35; Admin Dose 500 MG; Start 02/10/17 at 14:00 Hydralazine HCl (Apresoline) 25 mg TID PO Last administered on 02/10/17 21:53; Admin Dose 25 MG; Start 02/10/17 at 13:00 Insulin Glargine (Lantus) 20 unit DAILY@20 SC Last administered on 02/10/17 22: 11; Admin Dose 20 UNIT; Start 02/10/17 at 20:00 Miscellaneous Information 1 ea NOTE XX ; Start 02/10/17 at 13:30 Glucose (Glutose) 15 gm Q15M PRN PO DECREASED GLUCOSE; Start 02/10/17 at 13:30 Glucose (Glutose) 22.5 gm Q15M PRN PO DECREASED GLUCOSE; Start 02/10/17 at 13:30 Dextrose (D50w Syringe) 25 ml Q15M PRN IV DECREASED GLUCOSE; Start 02/10/17 at 13:30 Dextrose (D50w Syringe) 50 ml Q15M PRN IV DECREASED GLUCOSE; Start 02/10/17 at 13:30 Glucagon (Glucagen) 1 mg Q15M PRN IM DECREASED GLUCOSE; Start 02/10/17 at 13:30 Glucose (Glutose) 15 gm Q15M PRN BUCCAL DECREASED GLUCOSE; Start 02/10/17 at 13: 30 Diagnostic Test (Pha) (Accu-Chek) 1 ea 02 XX ; Start 02/11/17 at 02:00 Isosorbide Mononitrate (Imdur) 30 mg BID PO Last administered on 02/11/17 08:51 ; Admin Dose 30 MG; Start 02/10/17 at 21:00 Balaji Vigil DO February 11, 2017 11:44
--- NOTE | 2017-02-11 16:38 | CONS ---
Date/Time of Note Date/Time of Note DATE: 02/11/17 TIME: 16:34 Assessment/Plan Assessment/Plan Additional Assessment/Plan 1. Acute kidney injury on possible chronic kidney disease secondary to cardiorenal syndrome in the setting of CHF exacerbations. 2. Acute pulmonary edema secondary to congestive heart failure exacerbation and renal failure. 3. Acute hyperkalemia secondary to acute kidney injury on chronic kidney disease. 4. 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 5. History of hypertension. 6. History of hyperlipidemia. 7. History of coronary artery disease, status post previous coronary stent placement. 8. History of diabetes mellitus type 2. 9. BPH on flomax PLAN: on hydralazine, corge fro BP control Uric acid 7.7 flomax for BPH Cr slightly improved with IV lasix 20mg bID for diuresis Continue other meds Renal US showed Bilateral hyperechoic kidneys consistent with medical renal disease continue current lasix 20mg IV BID, expecting Renal function to improve will continue to follow up Consultation Date/Type/Reason Admit Date/Time February 10, 2017 at 16:12 Initial Consult Date 02/10/2017 Type of Consultation: NEPHROLOGY Reason for Consultation acute kidney Injury on CKD, Hyperkalemia , CHF< with pulmonary edema Referring Provider: JUDY CARSON 24 HR Interval Summary Free Text/Dictation no acute events, with IV lasix diuresis, Cr slightly improved, K high Exam/Review of Systems Vital Signs Vitals Vital Signs Date Time Temp Pulse Resp B/P Pulse Ox O2 Delivery O2 Flow Rate FiO2 02/11/17 16:10 58 02/11/17 16:09 98.0 20 130/59 96 02/11/17 15:00 Nasal Cannula 2.0 Intake and Output 02/10/17 02/10/17 02/11/17 15:00 23:00 07:00 Intake Total 520 ml 200 ml Output Total 700 ml 900 ml 1250 ml Balance -700 ml -380 ml -1050 ml Exam GENERAL: Awake, alert, more stable today HEENT: The pupils are equal, round, reactive to light and accommodation. Extraocular muscles are intact. No sclerae icterus. NECK: Supple. Jugular venous distention up to the mid neck. No lymphadenopathy. LUNGS: Have bibasilar crackles present up to the mid lung zones. No wheezing. HEART: S1, S2, with regular rhythm, no murmur. ABDOMEN: Soft, nontender, nondistended. Bowel sounds are present. EXTREMITIES: There is 1 to 2+ pitting edema, no clubbing, no cyanosis. NEUROLOGICAL: Alert, awake x3, follows commands, cranial nerves II through XII intact. Strength sensations are intact. Reflexes are normal. PSYCHIATRIC: Appropriate affect and mood. SKIN: No rash. Results Result Diagram: 02/11/17 0628 02/11/17 0628 Results 24 hrs Laboratory Tests Test 02/10/17 17:46 02/10/17 18:16 02/10/17 21:55 02/10/17 22:51 Bedside Glucose 157 115 Creatine Kinase 25 28 Creatine Kinase Index 4.5 4.3 Creatinine Kinase MB (Mass) 1.13 1.21 Troponin I 0.026 0.037 Free Thyroxine 1.44 Test 02/11/17 06:28 02/11/17 07:45 02/11/17 11:40 White Blood Count 7.5 Red Blood Count 4.69 L Hemoglobin 13.3 L Hematocrit 42.7 Mean Corpuscular Volume 91.0 Mean Corpuscular Hemoglobin 28.4 L Mean Corpuscular Hemoglobin Concent 31.1 L Red Cell Distribution Width 14.6 H Platelet Count 140 Mean Platelet Volume 10.3 Neutrophils % 70.3 Lymphocytes % 13.5 L Monocytes % 8.2 Eosinophils % 6.8 Basophils % 0.5 Nucleated Red Blood Cells % 0.0 Neutrophils # 5.3 Lymphocytes # 1.0 Monocytes # 0.6 Eosinophils # 0.5 Basophils # 0.0 Nucleated Red Blood Cells # 0.0 Sodium Level 137 Potassium Level 5.4 H Chloride Level 104 Carbon Dioxide Level 28 Anion Gap 10 Blood Urea Nitrogen 68 H Creatinine 3.22 H Glucose Level 141 # Uric Acid 7.7 Calcium Level 8.8 Phosphorus Level 4.9 Magnesium Level 2.0 Total Bilirubin 0.4 Direct Bilirubin 0.00 Indirect Bilirubin 0.4 Aspartate Amino Transf (AST/SGOT) 13 L Alanine Aminotransferase (ALT/SGPT) 22 Alkaline Phosphatase 63 Troponin I 0.057 Total Protein 7.5 Albumin 3.7 Globulin 3.80 H Albumin/Globulin Ratio 0.97 Triglycerides Level 163 H Cholesterol Level 203 H LDL Cholesterol, Calculated 125 HDL Cholesterol 45 Cholesterol/HDL Ratio 4.5 Prostate Specific Antigen 3.1 Bedside Glucose 111 224 H Medications Medications Current Medications Ondansetron HCl (Zofran Inj) 4 mg Q6H PRN IV NAUSEA AND/OR VOMITING; Start 02/10 at 13:00 Aspirin (Aspirin) 81 mg DAILY PO Last administered on 02/11/17 08:49; Admin Dose 81 MG; Start 02/11/17 at 09:00 Acetaminophen (Tylenol Tab) 650 mg Q6H PRN PO PAIN LEVEL 1-3 OR FEVER; Start at 13:00 Acetaminophen/ Hydrocodone Bitart ([place] (5/325)) 1 tab Q6H PRN PO PAIN LEVEL 4 -6; Start 02/10/17 at 13:00 Morphine Sulfate (morphine) 2 mg Q4H PRN IV PAIN LEVEL 7-10 Last administered on 02/10/17 21:51; Admin Dose 2 MG; Start 02/10/17 at 13:00 Magnesium Hydroxide (Milk Of Mag) 30 ml DAILY PRN PO CONSTIPATION; Start at 13:00 Bisacodyl (Dulcolax) 5 mg DAILY PRN PO CONSTIPATION; Start 02/10/17 at 13:00 Heparin Sodium (Porcine) (Heparin (5000 Units/0.5 ml)) 5,000 unit Q8 SC Last administered on 02/11/17 13:37; Admin Dose 5,000 UNIT; Start 02/10/17 at 14:00 Atorvastatin Calcium (Lipitor) 40 mg DAILY PO Last administered on 02/11/17 08: 50; Admin Dose 40 MG; Start 02/11/17 at 09:00 Carvedilol (Coreg) 25 mg BID PO Last administered on 02/11/17 08:51; Admin Dose 25 MG; Start 02/10/17 at 21:00 Clopidogrel Bisulfate (plaVIX) 75 mg DAILY PO Last administered on 02/11/17 08: 50; Admin Dose 75 MG; Start 02/11/17 at 09:00 Donepezil HCl (Aricept) 10 mg DAILY PO Last administered on 02/11/17 08:50; Admin Dose 10 MG; Start 02/11/17 at 09:00 Tamsulosin HCl (Flomax) 0.4 mg DAILY PO Last administered on 02/11/17 08:49; Admin Dose 0.4 MG; Start 02/11/17 at 09:00 Linagliptin (Tradjenta) 5 mg DAILY PO Last administered on 02/11/17 08:50; Admin Dose 5 MG; Start 02/11/17 at 09:00 Hydralazine HCl (Apresoline) 10 mg Q4H PRN IV SBP>160 Last administered on 14:11; Admin Dose 10 MG; Start 02/10/17 at 13:00 Cephalexin (Keflex) 500 mg Q8 PO Last administered on 02/11/17 13:28; Admin Dose 500 MG; Start 02/10/17 at 14:00 Insulin Glargine (Lantus) 20 unit DAILY@20 SC Last administered on 02/10/17 22: 11; Admin Dose 20 UNIT; Start 02/10/17 at 20:00 Miscellaneous Information 1 ea NOTE XX ; Start 02/10/17 at 13:30 Glucose (Glutose) 15 gm Q15M PRN PO DECREASED GLUCOSE; Start 02/10/17 at 13:30 Glucose (Glutose) 22.5 gm Q15M PRN PO DECREASED GLUCOSE; Start 02/10/17 at 13:30 Dextrose (D50w Syringe) 25 ml Q15M PRN IV DECREASED GLUCOSE; Start 02/10/17 at 13:30 Dextrose (D50w Syringe) 50 ml Q15M PRN IV DECREASED GLUCOSE; Start 02/10/17 at 13:30 Glucagon (Glucagen) 1 mg Q15M PRN IM DECREASED GLUCOSE; Start 02/10/17 at 13:30 Glucose (Glutose) 15 gm Q15M PRN BUCCAL DECREASED GLUCOSE; Start 02/10/17 at 13: 30 Diagnostic Test (Pha) (Accu-Chek) 1 ea 02 XX ; Start 02/11/17 at 02:00 Isosorbide Mononitrate (Imdur) 30 mg BID PO Last administered on 02/11/17 08:51 ; Admin Dose 30 MG; Start 02/10/17 at 21:00 Hydralazine HCl (Apresoline) 10 mg TID PO Last administered on 02/11/17 13:29; Admin Dose 10 MG; Start 02/11/17 at 13:00 CHANELL TRAYLOR MD February 11, 2017 16:38
[2017-02-11] MEDS: INSULIN GLARGINE [LANtus] 3 ML PEN SC SCH (21:00)
[2017-02-12] VITALS (11 sets, daily range): BP systolic 98–178; BP diastolic 55–86; PULSE 59–87; RESP 17–21
[2017-02-12] MEDS: ACCUCHECK AT 2AM (Patients on SS coverage) XX SCH (02:00)
[2017-02-12] MEDS: CEPHALEXIN 500 MG CAP PO SCH (06:21)
[2017-02-12] MEDS: FUROSEMIDE 20 MG INJ IV SCH ×2 (06:21→17:37)
[2017-02-12] MEDS: HEPARIN 5,000 UNIT/0.5 ML VIAL SC SCH ×3 (06:22→21:10)
[2017-02-12 07:38] LABS: ADD SCAN DIFF NO; BASOPHIL # 0.1 10^3/ul (0.0-0.1); BASOPHILS % 0.6 % (0.0-2.0); EOSINOPHILS # 0.5 10^3/ul (0.0-0.5); EOSINOPHILS % 5.1 % (0.0-7.0); HEMATOCRIT 41.9 % (42.0-52.0); HEMOGLOBIN 13.4 g/dl (14.0-18.0); LYMPHOCYTES # 1.4 10^3/ul (0.8-2.9); LYMPHOCYTES % 15.4 % (15.0-51.0); MEAN CORPUSCULAR HEMOGLOBIN 28.8 pg (29.0-33.0); MEAN CORPUSCULAR VOLUME 90.1 fl (82.0-101.0); MONOCYTE # 0.9 10^3/ul (0.3-0.9); MONOCYTES % 9.8 % (0.0-11.0); NEUTROPHILS % 68.2 % (39.0-77.0); PLATELET COUNT 131 10^3/UL (140-415); RED BLOOD COUNT 4.65 10^6/ul (4.70-6.10); RED CELL DISTRIBUTION WIDTH 14.2 % (11.5-14.5); WHITE BLOOD COUNT 8.8 10^3/ul (4.8-10.8)
[2017-02-12] MEDS: INSULIN ASPART [NOVOLOG] 3 ML PEN SC SCH ×7 (08:00→20:04)
[2017-02-12 08:14] LABS: CALCIUM 8.8 mg/dl (8.4-10.2); CREATININE 3.27 mg/dl (0.61-1.24); POTASSIUM 4.7 mmol/L (3.5-5.1)
[2017-02-12] MEDS: ASPIRIN 81 MG TAB PO SCH (08:44)
[2017-02-12] MEDS: ISOSORBIDE MONONITRATE(SR)30 MG TAB PO SCH ×2 (08:44→20:00)
[2017-02-12] MEDS: TAMSULOSIN (SR) 0.4 MG CAP PO SCH (08:44)
[2017-02-12] MEDS: LINAGLIPTIN 5 MG TABLET PO SCH (08:44)
[2017-02-12] MEDS: ATORVASTATIN 40 MG TAB PO SCH (08:44)
[2017-02-12] MEDS: CLOPIDOGREL 75 MG TAB PO SCH (08:44)
[2017-02-12] MEDS: DONEPEZIL 10 MG TAB PO SCH (08:45)
--- NOTE | 2017-02-12 10:23 | PN ---
Date/Time of Note Date/Time of Note DATE: 02/12/17 TIME: 10:20 Assessment/Plan VTE Prophylaxis VTE Prophylaxis Intervention: heparin Lines/Catheters IV [facility] [facility] Urinary Cath still in place: No Assessment/Plan Chief Complaint/Hosp Course Assessment and plan 1. Chest pain. Serial troponins negative. Patient also noted with echocardiogram ejection fraction 50% with stage I diastolic dysfunction. Continue on beta-umesh and statin medication as well as antiplatelet therapy. Stable at present. 2. Acute respiratory failure. Secondary to CHF exacerbation. Diuresis per supervisor dumping. Improving at present. Off O2 3. Acute on chronic kidney disease. Medications to be renally dosed. Follow- up with nephrology recommendations. aWait for clinical improvement 4. Accelerated hypertension. Continue antihypertensives and adjust as needed 4. Type 2 diabetes. Continue insulin. Will adjust as needed. Of note A1c was seen at 8.6. 6. Hyperkalemia. Noted with renal insufficiency. Provide with Kayexalate as needed. Follow-up with nephrology. Monitor level. Stable at present 7. Bilateral lower extremity edema. Patient with negative Doppler for DVT on bilateral lower extremities. Diuresis per supervisor dumping. On ABX for possible cellulitis 8. Dyslipidemia. Continue on statin medication Disposition and plan: We will get physical therapy to follow. Monitor renal panel. Discharge when medically stable and cleared by technical marketing consultant Discussed plan of care with Problems: Subjective 24 Hr Interval Summary Free Text/Dictation No respiratory distress seen at this time. Exam/Review of Systems Vital Signs Vitals Vital Signs Date Time Temp Pulse Resp B/P Pulse Ox O2 Delivery O2 Flow Rate FiO2 02/12/17 08:34 65 02/12/17 08:22 2.0 02/12/17 07:55 98.0 20 166/76 92 02/11/17 15:00 Nasal Cannula Intake and Output 02/11/17 02/11/17 02/12/17 15:00 23:00 07:00 Intake Total 800 ml 450 ml Output Total 1200 ml 1000 ml Balance -400 ml -550 ml Exam Constitutional: alert, oriented, other (Anxious) Head: normocephalic Eyes: nl conjunctiva Neck: supple Respiratory: diminished breath sounds Cardiovascular: other (Regular rate) Gastrointestinal: non-tender, soft Musculoskeletal: swelling (Minimal bilateral lower extremity) Neurological: REGISTER OF WILLS II-XII intact, nl mental status Skin: nl turgor Results Result Diagram: 02/12/17 0500 02/12/17 0721 Results 24 hrs Laboratory Tests Test 02/11/17 11:40 02/11/17 16:43 02/11/17 20:02 02/12/17 05:00 Bedside Glucose 224 H 82 82 White Blood Count 8.8 Red Blood Count 4.65 L Hemoglobin 13.4 L Hematocrit 41.9 L Mean Corpuscular Volume 90.1 Mean Corpuscular Hemoglobin 28.8 L Mean Corpuscular Hemoglobin Concent 32.0 Red Cell Distribution Width 14.2 Platelet Count 131 L Mean Platelet Volume 10.0 Neutrophils % 68.2 Lymphocytes % 15.4 Monocytes % 9.8 Eosinophils % 5.1 Basophils % 0.6 Nucleated Red Blood Cells % 0.0 Neutrophils # 6.0 Lymphocytes # 1.4 Monocytes # 0.9 Eosinophils # 0.5 Basophils # 0.1 Nucleated Red Blood Cells # 0.0 Test 02/12/17 07:21 02/12/17 08:02 Sodium Level 137 Potassium Level 4.7 Chloride Level 99 Carbon Dioxide Level 31 Anion Gap 12 Blood Urea Nitrogen 64 H Creatinine 3.27 H Glucose Level 154 Calcium Level 8.8 Bedside Glucose 134 Medications Medications Current Medications Ondansetron HCl (Zofran Inj) 4 mg Q6H PRN IV NAUSEA AND/OR VOMITING; Start 02/10 at 13:00 Aspirin (Aspirin) 81 mg DAILY PO Last administered on 02/12/17 08:44; Admin Dose 81 MG; Start 02/11/17 at 09:00 Acetaminophen (Tylenol Tab) 650 mg Q6H PRN PO PAIN LEVEL 1-3 OR FEVER; Start at 13:00 Acetaminophen/ Hydrocodone Bitart ([place] (5/325)) 1 tab Q6H PRN PO PAIN LEVEL 4 -6; Start 02/10/17 at 13:00 Morphine Sulfate (morphine) 2 mg Q4H PRN IV PAIN LEVEL 7-10 Last administered on 02/10/17 21:51; Admin Dose 2 MG; Start 02/10/17 at 13:00 Magnesium Hydroxide (Milk Of Mag) 30 ml DAILY PRN PO CONSTIPATION Last administered on 02/11/17 22:45; Admin Dose 30 ML; Start 02/10/17 at 13:00 Bisacodyl (Dulcolax) 5 mg DAILY PRN PO CONSTIPATION Last administered on 09:57; Admin Dose 5 MG; Start 02/10/17 at 13:00 Heparin Sodium (Porcine) (Heparin (5000 Units/0.5 ml)) 5,000 unit Q8 SC Last administered on 02/12/17 06:22; Admin Dose 5,000 UNIT; Start 02/10/17 at 14:00 Atorvastatin Calcium (Lipitor) 40 mg DAILY PO Last administered on 02/12/17 08: 44; Admin Dose 40 MG; Start 02/11/17 at 09:00 Carvedilol (Coreg) 25 mg BID PO Last administered on 02/12/17 08:45; Admin Dose 25 MG; Start 02/10/17 at 21:00 Clopidogrel Bisulfate (plaVIX) 75 mg DAILY PO Last administered on 02/12/17 08: 44; Admin Dose 75 MG; Start 02/11/17 at 09:00 Donepezil HCl (Aricept) 10 mg DAILY PO Last administered on 02/12/17 08:45; Admin Dose 10 MG; Start 02/11/17 at 09:00 Tamsulosin HCl (Flomax) 0.4 mg DAILY PO Last administered on 02/12/17 08:44; Admin Dose 0.4 MG; Start 02/11/17 at 09:00 Linagliptin (Tradjenta) 5 mg DAILY PO Last administered on 02/12/17 08:44; Admin Dose 5 MG; Start 02/11/17 at 09:00 Hydralazine HCl (Apresoline) 10 mg Q4H PRN IV SBP>160 Last administered on 14:11; Admin Dose 10 MG; Start 02/10/17 at 13:00 Cephalexin (Keflex) 500 mg Q8 PO Last administered on 02/12/17 06:21; Admin Dose 500 MG; Start 02/10/17 at 14:00 Insulin Glargine (Lantus) 20 unit DAILY@20 SC Last administered on 02/11/17 21: 00; Admin Dose 20 UNIT; Start 02/10/17 at 20:00 Miscellaneous Information 1 ea NOTE XX ; Start 02/10/17 at 13:30 Glucose (Glutose) 15 gm Q15M PRN PO DECREASED GLUCOSE; Start 02/10/17 at 13:30 Glucose (Glutose) 22.5 gm Q15M PRN PO DECREASED GLUCOSE; Start 02/10/17 at 13:30 Dextrose (D50w Syringe) 25 ml Q15M PRN IV DECREASED GLUCOSE; Start 02/10/17 at 13:30 Dextrose (D50w Syringe) 50 ml Q15M PRN IV DECREASED GLUCOSE; Start 02/10/17 at 13:30 Glucagon (Glucagen) 1 mg Q15M PRN IM DECREASED GLUCOSE; Start 02/10/17 at 13:30 Glucose (Glutose) 15 gm Q15M PRN BUCCAL DECREASED GLUCOSE; Start 02/10/17 at 13: 30 Diagnostic Test (Pha) (Accu-Chek) 1 ea 02 XX ; Start 02/11/17 at 02:00 Isosorbide Mononitrate (Imdur) 30 mg BID PO Last administered on 02/12/17 08:44 ; Admin Dose 30 MG; Start 02/10/17 at 21:00 Hydralazine HCl (Apresoline) 10 mg TID PO Last administered on 02/12/17 08:43; Admin Dose 10 MG; Start 02/11/17 at 13:00 SIMBA DUNCAN February 12, 2017 10:23
--- NOTE | 2017-02-12 12:33 | CONS ---
Date/Time of Note Date/Time of Note DATE: 02/12/17 TIME: 12:32 Assessment/Plan Assessment/Plan Additional Assessment/Plan 1. Acute kidney injury on possible chronic kidney disease secondary to cardiorenal syndrome in the setting of CHF exacerbation 2. Acute pulmonary edema secondary to congestive heart failure exacerbation and renal failure. 3. Acute hyperkalemia secondary to acute kidney injury on chronic kidney disease. 4. 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 5. History of hypertension. 6. History of hyperlipidemia. 7. History of coronary artery disease, status post previous coronary stent placement. 8. History of diabetes mellitus type 2. 9. BPH on flomax PLAN: on hydralazine, coreg fro BP control Uric acid 7.7 flomax for BPH Cr slightly improved with IV lasix 20mg bID for diuresis Continue other meds Renal US showed Bilateral hyperechoic kidneys consistent with medical renal disease continue current lasix 20mg IV BID, expecting Renal function to improve will continue to follow up Consultation Date/Type/Reason Admit Date/Time February 10, 2017 at 16:12 Initial Consult Date 02/10/2017 Type of Consultation: NEPHROLOGY Referring Provider: JUDY CARSON 24 HR Interval Summary Free Text/Dictation Cr 3.27 Exam/Review of Systems Vital Signs Vitals Vital Signs Date Time Temp Pulse Resp B/P Pulse Ox O2 Delivery O2 Flow Rate FiO2 02/12/17 11:56 97.6 60 17 162/77 97 02/12/17 08:22 2.0 02/11/17 15:00 Nasal Cannula Intake and Output 02/11/17 02/11/17 02/12/17 15:00 23:00 07:00 Intake Total 800 ml 450 ml Output Total 1200 ml 1000 ml Balance -400 ml -550 ml Exam GENERAL: Awake, alert, more stable today HEENT: The pupils are equal, round, reactive to light and accommodation. Extraocular muscles are intact. No sclerae icterus. NECK: Supple. Jugular venous distention up to the mid neck. No lymphadenopathy. LUNGS: Have bibasilar crackles present up to the mid lung zones. No wheezing. HEART: S1, S2, with regular rhythm, no murmur. ABDOMEN: Soft, nontender, nondistended. Bowel sounds are present. EXTREMITIES: There is 1 to 2+ pitting edema, no clubbing, no cyanosis. NEUROLOGICAL: Alert, awake x3, follows commands, cranial nerves II through XII intact. Strength sensations are intact. Reflexes are normal. PSYCHIATRIC: Appropriate affect and mood. SKIN: No rash. Results Result Diagram: 02/12/17 0500 02/12/17 0721 Results 24 hrs Laboratory Tests Test 02/11/17 16:43 02/11/17 20:02 02/12/17 05:00 02/12/17 07:21 Bedside Glucose 82 82 White Blood Count 8.8 Red Blood Count 4.65 L Hemoglobin 13.4 L Hematocrit 41.9 L Mean Corpuscular Volume 90.1 Mean Corpuscular Hemoglobin 28.8 L Mean Corpuscular Hemoglobin Concent 32.0 Red Cell Distribution Width 14.2 Platelet Count 131 L Mean Platelet Volume 10.0 Neutrophils % 68.2 Lymphocytes % 15.4 Monocytes % 9.8 Eosinophils % 5.1 Basophils % 0.6 Nucleated Red Blood Cells % 0.0 Neutrophils # 6.0 Lymphocytes # 1.4 Monocytes # 0.9 Eosinophils # 0.5 Basophils # 0.1 Nucleated Red Blood Cells # 0.0 Sodium Level 137 Potassium Level 4.7 Chloride Level 99 Carbon Dioxide Level 31 Anion Gap 12 Blood Urea Nitrogen 64 H Creatinine 3.27 H Glucose Level 154 Calcium Level 8.8 Test 02/12/17 08:02 Bedside Glucose 134 Medications Medications Current Medications Ondansetron HCl (Zofran Inj) 4 mg Q6H PRN IV NAUSEA AND/OR VOMITING; Start 02/10 at 13:00 Aspirin (Aspirin) 81 mg DAILY PO Last administered on 02/12/17 08:44; Admin Dose 81 MG; Start 02/11/17 at 09:00 Acetaminophen (Tylenol Tab) 650 mg Q6H PRN PO PAIN LEVEL 1-3 OR FEVER; Start at 13:00 Acetaminophen/ Hydrocodone Bitart ([place] (5/325)) 1 tab Q6H PRN PO PAIN LEVEL 4 -6; Start 02/10/17 at 13:00 Morphine Sulfate (morphine) 2 mg Q4H PRN IV PAIN LEVEL 7-10 Last administered on 02/10/17 21:51; Admin Dose 2 MG; Start 02/10/17 at 13:00 Magnesium Hydroxide (Milk Of Mag) 30 ml DAILY PRN PO CONSTIPATION Last administered on 02/11/17 22:45; Admin Dose 30 ML; Start 02/10/17 at 13:00 Bisacodyl (Dulcolax) 5 mg DAILY PRN PO CONSTIPATION Last administered on 09:57; Admin Dose 5 MG; Start 02/10/17 at 13:00 Heparin Sodium (Porcine) (Heparin (5000 Units/0.5 ml)) 5,000 unit Q8 SC Last administered on 02/12/17 06:22; Admin Dose 5,000 UNIT; Start 02/10/17 at 14:00 Atorvastatin Calcium (Lipitor) 40 mg DAILY PO Last administered on 02/12/17 08: 44; Admin Dose 40 MG; Start 02/11/17 at 09:00 Carvedilol (Coreg) 25 mg BID PO Last administered on 02/12/17 08:45; Admin Dose 25 MG; Start 02/10/17 at 21:00 Clopidogrel Bisulfate (plaVIX) 75 mg DAILY PO Last administered on 02/12/17 08: 44; Admin Dose 75 MG; Start 02/11/17 at 09:00 Donepezil HCl (Aricept) 10 mg DAILY PO Last administered on 02/12/17 08:45; Admin Dose 10 MG; Start 02/11/17 at 09:00 Tamsulosin HCl (Flomax) 0.4 mg DAILY PO Last administered on 02/12/17 08:44; Admin Dose 0.4 MG; Start 02/11/17 at 09:00 Linagliptin (Tradjenta) 5 mg DAILY PO Last administered on 02/12/17 08:44; Admin Dose 5 MG; Start 02/11/17 at 09:00 Hydralazine HCl (Apresoline) 10 mg Q4H PRN IV SBP>160 Last administered on 14:11; Admin Dose 10 MG; Start 02/10/17 at 13:00 Cephalexin (Keflex) 500 mg Q8 PO Last administered on 02/12/17 06:21; Admin Dose 500 MG; Start 02/10/17 at 14:00 Insulin Glargine (Lantus) 20 unit DAILY@20 SC Last administered on 02/11/17 21: 00; Admin Dose 20 UNIT; Start 5/7/17 at 20:00 Miscellaneous Information 1 ea NOTE XX ; Start 02/10/17 at 13:30 Glucose (Glutose) 15 gm Q15M PRN PO DECREASED GLUCOSE; Start 02/10/17 at 13:30 Glucose (Glutose) 22.5 gm Q15M PRN PO DECREASED GLUCOSE; Start 02/10/17 at 13:30 Dextrose (D50w Syringe) 25 ml Q15M PRN IV DECREASED GLUCOSE; Start 02/10/17 at 13:30 Dextrose (D50w Syringe) 50 ml Q15M PRN IV DECREASED GLUCOSE; Start 02/10/17 at 13:30 Glucagon (Glucagen) 1 mg Q15M PRN IM DECREASED GLUCOSE; Start 02/10/17 at 13:30 Glucose (Glutose) 15 gm Q15M PRN BUCCAL DECREASED GLUCOSE; Start 02/10/17 at 13: 30 Diagnostic Test (Pha) (Accu-Chek) 1 ea 02 XX ; Start 02/11/17 at 02:00 Isosorbide Mononitrate (Imdur) 30 mg BID PO Last administered on 02/12/17 08:44 ; Admin Dose 30 MG; Start 02/10/17 at 21:00 Hydralazine HCl (Apresoline) 10 mg TID PO Last administered on 02/12/17 08:43; Admin Dose 10 MG; Start 02/11/17 at 13:00 CHANELL TRAYLOR MD February 12, 2017 12:33
[2017-02-12] MEDS ORDERED: LACTULOSE 30ML CUP PO PRN (13:00)
[2017-02-12] MEDS: NA PHOSPHATE/BIPHOS 133 ML ENEMA PR PRN (13:05)
[2017-02-12] MEDS: CEPHALEXIN 250 MG CAP PO SCH ×2 (13:20→21:10)
--- NOTE | 2017-02-12 17:24 | CONS ---
Date/Time of Note Date/Time of Note DATE: 02/12/17 TIME: 17:20 Assessment/Plan Assessment/Plan Additional Assessment/Plan Acute decompensated systolic and diastolic congestive heart failure Coronary artery disease Cardiomyopathy with ejection fraction 50% Acute kidney injury Hypertension Diabetes -Patient with progressive improvement in shortness of breath as well as lower extremity edema. IV diuretics as per our nephrology colleagues. Continue dual antiplatelet therapy, statin, beta-umesh, would increase dose of hydralazine, continue imdur. Extensive discussion had with the patient via help desk team leader regarding his cardiac status. As mentioned previously, patient was scheduled for outpatient cardiac catheterization in August 2016. Patient with abnormal renal function at that time and recommendations were made for outpatient nephrology evaluation. As per the patient, he did not see a file drawer finisher and appears he has been noncompliant with his medications as well. I counseled him extensively on importance of medication compliance. Given his current abnormal renal function, this is not the ideal time to pursue cardiac catheterization. Would continue aggressive medical management and strongly counseled on importance of medication and diet compliance. Consultation Date/Type/Reason Admit Date/Time February 10, 2017 at 16:12 Type of Consultation: cv Referring Provider: JUDY CARSON 24 HR Interval Summary Free Text/Dictation Shortness of breath continues to improve as well as lower extremity swelling. Denies any current chest pain Exam/Review of Systems Vital Signs Vitals Vital Signs Date Time Temp Pulse Resp B/P Pulse Ox O2 Delivery O2 Flow Rate FiO2 02/12/17 16:03 97.3 66 19 165/73 97 02/12/17 08:22 2.0 02/11/17 15:00 Nasal Cannula Intake and Output 02/11/17 02/11/17 02/12/17 15:00 23:00 07:00 Intake Total 800 ml 450 ml Output Total 1200 ml 1000 ml Balance -400 ml -550 ml Exam No apparent distress Constitutional: alert, obese, oriented Head: normocephalic Respiratory: other (Coarse breath sounds bilaterally with scattered rhonchi and rails, no wheezing) Cardiovascular: other (S1-S2 heard), regular rate and rhythm Gastrointestinal: bowel sounds, non-tender, other (No guarding), soft Extremities: edema Results Result Diagram: 02/12/17 0500 02/12/17 0721 Results 24 hrs Laboratory Tests Test 02/11/17 20:02 02/12/17 05:00 02/12/17 07:21 02/12/17 08:02 Bedside Glucose 82 134 White Blood Count 8.8 Red Blood Count 4.65 L Hemoglobin 13.4 L Hematocrit 41.9 L Mean Corpuscular Volume 90.1 Mean Corpuscular Hemoglobin 28.8 L Mean Corpuscular Hemoglobin Concent 32.0 Red Cell Distribution Width 14.2 Platelet Count 131 L Mean Platelet Volume 10.0 Neutrophils % 68.2 Lymphocytes % 15.4 Monocytes % 9.8 Eosinophils % 5.1 Basophils % 0.6 Nucleated Red Blood Cells % 0.0 Neutrophils # 6.0 Lymphocytes # 1.4 Monocytes # 0.9 Eosinophils # 0.5 Basophils # 0.1 Nucleated Red Blood Cells # 0.0 Sodium Level 137 Potassium Level 4.7 Chloride Level 99 Carbon Dioxide Level 31 Anion Gap 12 Blood Urea Nitrogen 64 H Creatinine 3.27 H Glucose Level 154 Calcium Level 8.8 Test 02/12/17 12:34 Bedside Glucose 337 H Medications Medications Current Medications Ondansetron HCl (Zofran Inj) 4 mg Q6H PRN IV NAUSEA AND/OR VOMITING; Start 02/10 at 13:00 Aspirin (Aspirin) 81 mg DAILY PO Last administered on 02/12/17 08:44; Admin Dose 81 MG; Start 02/11/17 at 09:00 Acetaminophen (Tylenol Tab) 650 mg Q6H PRN PO PAIN LEVEL 1-3 OR FEVER; Start at 13:00 Acetaminophen/ Hydrocodone Bitart ([place] (5/325)) 1 tab Q6H PRN PO PAIN LEVEL 4 -6; Start 02/10/17 at 13:00 Morphine Sulfate (morphine) 2 mg Q4H PRN IV PAIN LEVEL 7-10 Last administered on 02/10/17 21:51; Admin Dose 2 MG; Start 02/10/17 at 13:00 Magnesium Hydroxide (Milk Of Mag) 30 ml DAILY PRN PO CONSTIPATION Last administered on 02/11/17 22:45; Admin Dose 30 ML; Start 02/10/17 at 13:00 Bisacodyl (Dulcolax) 5 mg DAILY PRN PO CONSTIPATION Last administered on 09:57; Admin Dose 5 MG; Start 02/10/17 at 13:00 Heparin Sodium (Porcine) (Heparin (5000 Units/0.5 ml)) 5,000 unit Q8 SC Last administered on 02/12/17 13:15; Admin Dose 5,000 UNIT; Start 02/10/17 at 14:00 Atorvastatin Calcium (Lipitor) 40 mg DAILY PO Last administered on 02/12/17 08: 44; Admin Dose 40 MG; Start 02/11/17 at 09:00 Carvedilol (Coreg) 25 mg BID PO Last administered on 02/12/17 08:45; Admin Dose 25 MG; Start 02/10/17 at 21:00 Clopidogrel Bisulfate (plaVIX) 75 mg DAILY PO Last administered on 02/12/17 08: 44; Admin Dose 75 MG; Start 02/11/17 at 09:00 Donepezil HCl (Aricept) 10 mg DAILY PO Last administered on 02/12/17 08:45; Admin Dose 10 MG; Start 02/11/17 at 09:00 Tamsulosin HCl (Flomax) 0.4 mg DAILY PO Last administered on 02/12/17 08:44; Admin Dose 0.4 MG; Start 02/11/17 at 09:00 Linagliptin (Tradjenta) 5 mg DAILY PO Last administered on 02/12/17 08:44; Admin Dose 5 MG; Start 02/11/17 at 09:00 Hydralazine HCl (Apresoline) 10 mg Q4H PRN IV SBP>160 Last administered on 14:11; Admin Dose 10 MG; Start 02/10/17 at 13:00 Insulin Glargine (Lantus) 20 unit DAILY@20 SC Last administered on 02/11/17 21: 00; Admin Dose 20 UNIT; Start 02/10/17 at 20:00 Miscellaneous Information 1 ea NOTE XX ; Start 02/10/17 at 13:30 Glucose (Glutose) 15 gm Q15M PRN PO DECREASED GLUCOSE; Start 02/10/17 at 13:30 Glucose (Glutose) 22.5 gm Q15M PRN PO DECREASED GLUCOSE; Start 02/10/17 at 13:30 Dextrose (D50w Syringe) 25 ml Q15M PRN IV DECREASED GLUCOSE; Start 02/10/17 at 13:30 Dextrose (D50w Syringe) 50 ml Q15M PRN IV DECREASED GLUCOSE; Start 02/10/17 at 13:30 Glucagon (Glucagen) 1 mg Q15M PRN IM DECREASED GLUCOSE; Start 02/10/17 at 13:30 Glucose (Glutose) 15 gm Q15M PRN BUCCAL DECREASED GLUCOSE; Start 02/10/17 at 13: 30 Diagnostic Test (Pha) (Accu-Chek) 1 ea 02 XX ; Start 02/11/17 at 02:00 Isosorbide Mononitrate (Imdur) 30 mg BID PO Last administered on 02/12/17 08:44 ; Admin Dose 30 MG; Start 02/10/17 at 21:00 Hydralazine HCl (Apresoline) 10 mg TID PO Last administered on 02/12/17 13:04; Admin Dose 10 MG; Start 02/11/17 at 13:00 Cephalexin (Keflex) 250 mg Q8 PO Last administered on 02/12/17 13:20; Admin Dose 250 MG; Start 02/12/17 at 14:00 Sodium Biphosphate/ Sodium Phosphate (Fleet Enema) 133 ml DAILY PRN [place] CONSTIPATION Last administered on 02/12/17 13:05; Admin Dose 133 ML; Start at 13:00 Lactulose (Enulose) 20 gm Q6H PRN PO CONSTIPATION; Start 02/12/17 at 13:00 Balaji Vigil DO February 12, 2017 17:24
[2017-02-12] MEDS ORDERED: FUROSEMIDE 20 MG INJ IV ONE (17:30)
[2017-02-12] MEDS: INSULIN GLARGINE [LANtus] 3 ML PEN SC SCH (19:55)
[2017-02-12] MEDS: hydrALAzine 20 MG INJ IV PRN (19:59)
[2017-02-13] VITALS (12 sets, daily range): BP systolic 93–153; BP diastolic 44–74; PULSE 54–78; RESP 17–20
[2017-02-13] MEDS: ACCUCHECK AT 2AM (Patients on SS coverage) XX SCH (01:47)
[2017-02-13] MEDS: FUROSEMIDE 20 MG INJ IV SCH (05:17)
[2017-02-13] MEDS: CEPHALEXIN 250 MG CAP PO SCH ×3 (05:17→20:34)
[2017-02-13] MEDS: HEPARIN 5,000 UNIT/0.5 ML VIAL SC SCH ×3 (05:21→20:42)
[2017-02-13 07:35] LABS: ADD SCAN DIFF NO
[2017-02-13 07:45] LABS: BASOPHIL # 0.1 10^3/ul (0.0-0.1); BASOPHILS % 0.6 % (0.0-2.0); EOSINOPHILS # 0.5 10^3/ul (0.0-0.5); EOSINOPHILS % 5.7 % (0.0-7.0); LYMPHOCYTES # 1.4 10^3/ul (0.8-2.9); LYMPHOCYTES % 15.2 % (15.0-51.0); MEAN CORPUSCULAR HEMOGLOBIN 28.4 pg (29.0-33.0); MEAN CORPUSCULAR HGB CONC 31.7 g/dl (32.0-37.0); MEAN CORPUSCULAR VOLUME 89.7 fl (82.0-101.0); MEAN PLATELET VOLUME 10.4 fl (7.4-10.4); MONOCYTES % 10.9 % (0.0-11.0); NEUTROPHIL # 6.1 10^3/ul (1.6-7.5); NEUTROPHILS % 66.8 % (39.0-77.0); PLATELET COUNT 135 10^3/UL (140-415); RED BLOOD COUNT 4.57 10^6/ul (4.70-6.10); RED CELL DISTRIBUTION WIDTH 14.3 % (11.5-14.5); WHITE BLOOD COUNT 9.1 10^3/ul (4.8-10.8)
[2017-02-13 08:09] LABS: POTASSIUM 3.7 mmol/L (3.5-5.1)
[2017-02-13 08:12] LABS: CREATININE 3.23 mg/dl (0.61-1.24)
[2017-02-13 08:13] LABS: CALCIUM 8.8 mg/dl (8.4-10.2)
[2017-02-13] MEDS: INSULIN ASPART [NOVOLOG] 3 ML PEN SC SCH ×7 (08:58→20:40)
--- NOTE | 2017-02-13 09:08 | RADRPT ---
PROCEDURE: XR Chest AP portable CLINICAL INDICATION: CHF TECHNIQUE: An AP portable radiograph of the chest was submitted. COMPARISON: 09/28/2013 FINDINGS: Support Hardware: None Cardiovascular: The heart remains mildly enlarged and the pulmonary vasculature appears more congest ed. Lung Snow: Increasing interstitial infiltrates are seen to the mid and lower lung zones suspicious for interstitial edema. Pleural Spaces: No pneumothorax or pleural effusion is identified. Osseous Structures: Degenerative changes are seen diffusely through the thoracic spine. Soft Tissues: The soft tissues appear unremarkable. IMPRESSION: 1. Persistent mild cardiomegaly with worsening pulmonary vascular congestion . 2. Worsening bilateral interstitial infiltrates suspicious for edema. Physician Kei Date Time Electronically viewed and signed by Physician Kei on 02/13/2017 09:08 /
--- NOTE | 2017-02-13 09:53 | PN ---
Date/Time of Note Date/Time of Note DATE: 02/13/17 TIME: 09:51 Assessment/Plan VTE Prophylaxis VTE Prophylaxis Intervention: heparin Lines/Catheters IV [facility] [place] [facility] Urinary Cath still in place: No Assessment/Plan Chief Complaint/Hosp Course Assessment and plan 1. Chest pain. Serial troponins negative. Patient also noted with echocardiogram ejection fraction 50% with stage I diastolic dysfunction. Continue on beta-umesh and statin medication as well as antiplatelet therapy. Stable at present. 2. Acute respiratory failure. Secondary to CHF exacerbation. Seen on room air. Noted with worse x-ray today. Continue on diuresis with monitoring of renal function. News Assignment Editor recommendations appreciated 3. Acute on chronic kidney disease. Medications to be renally dosed. Follow- up with nephrology recommendations. aWait for clinical improvement 4. Accelerated hypertension. Continue antihypertensives and adjust as needed 4. Type 2 diabetes. Continue insulin. Will adjust as needed. Of note A1c was seen at 8.6. 6. Hyperkalemia. Noted with renal insufficiency. Provide with Kayexalate as needed. Follow-up with nephrology. Monitor level. Stable at present 7. Bilateral lower extremity edema. Patient with negative Doppler for DVT on bilateral lower extremities. Diuresis per center manager. On ABX for possible cellulitis 8. Dyslipidemia. Continue on statin medication Disposition and plan: With noted worse x-ray of the chest. Continue diuresis. Monitor renal panel. Physical therapy to follow. Discharge when medically stable and cleared by consultants Discussed plan of care with Problems: Subjective 24 Hr Interval Summary Free Text/Dictation Seen on room air but noted with some dyspnea on exertion Exam/Review of Systems Vital Signs Vitals Vital Signs Date Time Temp Pulse Resp B/P Pulse Ox O2 Delivery O2 Flow Rate FiO2 02/13/17 08:17 63 02/13/17 07:54 98.4 20 93/44 95 02/13/17 04:23 2.0 02/12/17 19:21 Nasal Cannula Intake and Output 02/12/17 02/12/17 02/13/17 15:00 23:00 07:00 Intake Total 540 ml 240 ml Output Total 800 ml 550 ml Balance -260 ml -310 ml Exam Constitutional: alert, oriented Head: normocephalic Neck: non-tender, supple Respiratory: diminished breath sounds Cardiovascular: other (Regular rate) Gastrointestinal: non-tender, soft Musculoskeletal: nl extremities to inspection Results Result Diagram: 02/13/17 0646 02/13/17 0646 Results 24 hrs Laboratory Tests Test 02/12/17 12:34 02/12/17 17:11 02/12/17 19:52 02/13/17 01:43 Bedside Glucose 337 H 183 226 H 178 Test 02/13/17 06:46 02/13/17 07:59 02/13/17 08:55 White Blood Count 9.1 Red Blood Count 4.57 L Hemoglobin 13.0 L Hematocrit 41.0 L Mean Corpuscular Volume 89.7 Mean Corpuscular Hemoglobin 28.4 L Mean Corpuscular Hemoglobin Concent 31.7 L Red Cell Distribution Width 14.3 Platelet Count 135 L Mean Platelet Volume 10.4 Neutrophils % 66.8 Lymphocytes % 15.2 Monocytes % 10.9 Eosinophils % 5.7 Basophils % 0.6 Nucleated Red Blood Cells % 0.0 Neutrophils # 6.1 Lymphocytes # 1.4 Monocytes # 1.0 H Eosinophils # 0.5 Basophils # 0.1 Nucleated Red Blood Cells # 0.0 Sodium Level 139 Potassium Level 3.7 Chloride Level 93 L Carbon Dioxide Level 33 H Anion Gap 17 H Blood Urea Nitrogen 65 H Creatinine 3.23 H Glucose Level 141 Calcium Level 8.8 Magnesium Level 1.9 Bedside Glucose 155 188 Medications Medications Current Medications Ondansetron HCl (Zofran Inj) 4 mg Q6H PRN IV NAUSEA AND/OR VOMITING; Start 02/10 at 13:00 Aspirin (Aspirin) 81 mg DAILY PO Last administered on 02/12/17 08:44; Admin Dose 81 MG; Start 02/11/17 at 09:00 Acetaminophen (Tylenol Tab) 650 mg Q6H PRN PO PAIN LEVEL 1-3 OR FEVER; Start at 13:00 Acetaminophen/ Hydrocodone Bitart ([place] (5/325)) 1 tab Q6H PRN PO PAIN LEVEL 4 -6; Start 02/10/17 at 13:00 Morphine Sulfate (morphine) 2 mg Q4H PRN IV PAIN LEVEL 7-10 Last administered on 02/10/17 21:51; Admin Dose 2 MG; Start 02/10/17 at 13:00 Magnesium Hydroxide (Milk Of Mag) 30 ml DAILY PRN PO CONSTIPATION Last administered on 02/11/17 22:45; Admin Dose 30 ML; Start 02/10/17 at 13:00 Bisacodyl (Dulcolax) 5 mg DAILY PRN PO CONSTIPATION Last administered on 09:57; Admin Dose 5 MG; Start 02/10/17 at 13:00 Heparin Sodium (Porcine) (Heparin (5000 Units/0.5 ml)) 5,000 unit Q8 SC Last administered on 02/13/17 05:21; Admin Dose 5,000 UNIT; Start 02/10/17 at 14:00 Atorvastatin Calcium (Lipitor) 40 mg DAILY PO Last administered on 02/12/17 08: 44; Admin Dose 40 MG; Start 02/11/17 at 09:00 Carvedilol (Coreg) 25 mg BID PO Last administered on 02/12/17 20:01; Admin Dose 25 MG; Start 02/10/17 at 21:00 Clopidogrel Bisulfate (plaVIX) 75 mg DAILY PO Last administered on 02/12/17 08: 44; Admin Dose 75 MG; Start 02/11/17 at 09:00 Donepezil HCl (Aricept) 10 mg DAILY PO Last administered on 02/12/17 08:45; Admin Dose 10 MG; Start 02/11/17 at 09:00 Tamsulosin HCl (Flomax) 0.4 mg DAILY PO Last administered on 02/12/17 08:44; Admin Dose 0.4 MG; Start 02/11/17 at 09:00 Linagliptin (Tradjenta) 5 mg DAILY PO Last administered on 02/12/17 08:44; Admin Dose 5 MG; Start 02/11/17 at 09:00 Hydralazine HCl (Apresoline) 10 mg Q4H PRN IV SBP>160 Last administered on 19:59; Admin Dose 10 MG; Start 02/10/17 at 13:00 Miscellaneous Information 1 ea NOTE XX ; Start 02/10/17 at 13:30 Glucose (Glutose) 15 gm Q15M PRN PO DECREASED GLUCOSE; Start 02/10/17 at 13:30 Glucose (Glutose) 22.5 gm Q15M PRN PO DECREASED GLUCOSE; Start 02/10/17 at 13:30 Dextrose (D50w Syringe) 25 ml Q15M PRN IV DECREASED GLUCOSE; Start 02/10/17 at 13:30 Dextrose (D50w Syringe) 50 ml Q15M PRN IV DECREASED GLUCOSE; Start 02/10/17 at 13:30 Glucagon (Glucagen) 1 mg Q15M PRN IM DECREASED GLUCOSE; Start 02/10/17 at 13:30 Glucose (Glutose) 15 gm Q15M PRN BUCCAL DECREASED GLUCOSE; Start 02/10/17 at 13: 30 Diagnostic Test (Pha) (Accu-Chek) 1 ea 02 XX ; Start 02/11/17 at 02:00 Isosorbide Mononitrate (Imdur) 30 mg BID PO Last administered on 02/12/17 20:00 ; Admin Dose 30 MG; Start 02/10/17 at 21:00 Cephalexin (Keflex) 250 mg Q8 PO Last administered on 02/13/17 05:17; Admin Dose 250 MG; Start 02/12/17 at 14:00 Sodium Biphosphate/ Sodium Phosphate (Fleet Enema) 133 ml DAILY PRN [place] CONSTIPATION Last administered on 02/12/17 13:05; Admin Dose 133 ML; Start at 13:00 Lactulose (Enulose) 20 gm Q6H PRN PO CONSTIPATION; Start 02/12/17 at 13:00 Hydralazine HCl (Apresoline) 25 mg BID PO Last administered on 02/12/17 21:11; Admin Dose 25 MG; Start 02/12/17 at 21:00 Insulin Glargine (Lantus) 24 unit DAILY@20 SC ; Start 02/13/17 at 20:00 SIMBA DUNCAN February 13, 2017 09:53
[2017-02-13] MEDS: ASPIRIN 81 MG TAB PO SCH (10:07)
[2017-02-13] MEDS: ATORVASTATIN 40 MG TAB PO SCH (10:07)
[2017-02-13] MEDS: CLOPIDOGREL 75 MG TAB PO SCH (10:07)
[2017-02-13] MEDS: DONEPEZIL 10 MG TAB PO SCH (10:08)
[2017-02-13] MEDS: LINAGLIPTIN 5 MG TABLET PO SCH (10:08)
[2017-02-13] MEDS: TAMSULOSIN (SR) 0.4 MG CAP PO SCH (10:08)
[2017-02-13] MEDS: ISOSORBIDE MONONITRATE(SR)30 MG TAB PO SCH ×2 (10:12→20:34)
[2017-02-13] MEDS: morphine 2 MG INJ IV PRN (12:17)
--- NOTE | 2017-02-13 12:42 | CONS ---
Date/Time of Note Date/Time of Note DATE: 02/13/17 TIME: 12:40 Assessment/Plan Assessment/Plan Additional Assessment/Plan 1. Acute kidney injury on possible chronic kidney disease secondary to cardiorenal syndrome in the setting of CHF exacerbations. 2. Acute pulmonary edema secondary to congestive heart failure exacerbation and renal failure. 3. Acute hyperkalemia secondary to acute kidney injury on chronic kidney disease. 4. 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 5. History of hypertension. 6. History of hyperlipidemia. 7. History of coronary artery disease, status post previous coronary stent placement. 8. History of diabetes mellitus type 2. 9. BPH on flomax PLAN: on hydralazine, coreg for BP control Uric acid 7.7 flomax for BPH Cr slightly improved with IV lasix 20mg bID for diuresis- now more alkalotic, d/ c IV lasix to PO lasix from tomorrow Renal US showed Bilateral hyperechoic kidneys consistent with medical renal disease will continue to follow up Consultation Date/Type/Reason Admit Date/Time February 10, 2017 at 16:12 Initial Consult Date 02/10/2017 Type of Consultation: NEPHROLOGY Referring Provider: JUDY CARSON Exam/Review of Systems Vital Signs Vitals Vital Signs Date Time Temp Pulse Resp B/P Pulse Ox O2 Delivery O2 Flow Rate FiO2 02/13/17 11:44 97.5 64 20 98/64 97 02/13/17 04:23 2.0 02/12/17 19:21 Nasal Cannula Intake and Output 02/12/17 02/12/17 02/13/17 15:00 23:00 07:00 Intake Total 540 ml 240 ml Output Total 800 ml 550 ml Balance -260 ml -310 ml Exam GENERAL: Awake, alert, more stable today HEENT: The pupils are equal, round, reactive to light and accommodation. Extraocular muscles are intact. No sclerae icterus. NECK: Supple. Jugular venous distention up to the mid neck. No lymphadenopathy. LUNGS: Have bibasilar crackles present up to the mid lung zones. No wheezing. HEART: S1, S2, with regular rhythm, no murmur. ABDOMEN: Soft, nontender, nondistended. Bowel sounds are present. EXTREMITIES: There is 1 to 2+ pitting edema, no clubbing, no cyanosis. NEUROLOGICAL: Alert, awake x3, follows commands, cranial nerves II through XII intact. Strength sensations are intact. Reflexes are normal. PSYCHIATRIC: Appropriate affect and mood. SKIN: No rash. Results Result Diagram: 02/13/17 0646 02/13/17 0646 Results 24 hrs Laboratory Tests Test 02/12/17 17:11 02/12/17 19:52 02/13/17 01:43 02/13/17 06:46 Bedside Glucose 183 226 H 178 White Blood Count 9.1 Red Blood Count 4.57 L Hemoglobin 13.0 L Hematocrit 41.0 L Mean Corpuscular Volume 89.7 Mean Corpuscular Hemoglobin 28.4 L Mean Corpuscular Hemoglobin Concent 31.7 L Red Cell Distribution Width 14.3 Platelet Count 135 L Mean Platelet Volume 10.4 Neutrophils % 66.8 Lymphocytes % 15.2 Monocytes % 10.9 Eosinophils % 5.7 Basophils % 0.6 Nucleated Red Blood Cells % 0.0 Neutrophils # 6.1 Lymphocytes # 1.4 Monocytes # 1.0 H Eosinophils # 0.5 Basophils # 0.1 Nucleated Red Blood Cells # 0.0 Sodium Level 139 Potassium Level 3.7 Chloride Level 93 L Carbon Dioxide Level 33 H Anion Gap 17 H Blood Urea Nitrogen 65 H Creatinine 3.23 H Glucose Level 141 Calcium Level 8.8 Magnesium Level 1.9 Test 02/13/17 07:59 02/13/17 08:55 Bedside Glucose 155 188 Medications Medications Current Medications Ondansetron HCl (Zofran Inj) 4 mg Q6H PRN IV NAUSEA AND/OR VOMITING; Start 02/10 at 13:00 Aspirin (Aspirin) 81 mg DAILY PO Last administered on 02/13/17 10:07; Admin Dose 81 MG; Start 02/11/17 at 09:00 Acetaminophen (Tylenol Tab) 650 mg Q6H PRN PO PAIN LEVEL 1-3 OR FEVER; Start at 13:00 Acetaminophen/ Hydrocodone Bitart ([place] (5/325)) 1 tab Q6H PRN PO PAIN LEVEL 4 -6 Last administered on 02/13/17 10:14; Admin Dose 1 TAB; Start 02/10/17 at 13: 00 Morphine Sulfate (morphine) 2 mg Q4H PRN IV PAIN LEVEL 7-10 Last administered on 02/13/17 12:17; Admin Dose 2 MG; Start 02/10/17 at 13:00 Magnesium Hydroxide (Milk Of Mag) 30 ml DAILY PRN PO CONSTIPATION Last administered on 02/11/17 22:45; Admin Dose 30 ML; Start 02/10/17 at 13:00 Bisacodyl (Dulcolax) 5 mg DAILY PRN PO CONSTIPATION Last administered on 09:57; Admin Dose 5 MG; Start 02/10/17 at 13:00 Heparin Sodium (Porcine) (Heparin (5000 Units/0.5 ml)) 5,000 unit Q8 SC Last administered on 02/13/17 05:21; Admin Dose 5,000 UNIT; Start 02/10/17 at 14:00 Atorvastatin Calcium (Lipitor) 40 mg DAILY PO Last administered on 02/13/17 10 :07; Admin Dose 40 MG; Start 02/11/17 at 09:00 Carvedilol (Coreg) 25 mg BID PO Last administered on 02/13/17 10:11; Admin Dose 25 MG; Start 02/10/17 at 21:00 Clopidogrel Bisulfate (plaVIX) 75 mg DAILY PO Last administered on 02/13/17 10 :07; Admin Dose 75 MG; Start 02/11/17 at 09:00 Donepezil HCl (Aricept) 10 mg DAILY PO Last administered on 02/13/17 10:08; Admin Dose 10 MG; Start 02/11/17 at 09:00 Tamsulosin HCl (Flomax) 0.4 mg DAILY PO Last administered on 02/13/17 10:08; Admin Dose 0.4 MG; Start 02/11/17 at 09:00 Linagliptin (Tradjenta) 5 mg DAILY PO Last administered on 02/13/17 10:08; Admin Dose 5 MG; Start 02/11/17 at 09:00 Hydralazine HCl (Apresoline) 10 mg Q4H PRN IV SBP>160 Last administered on 19:59; Admin Dose 10 MG; Start 02/10/17 at 13:00 Miscellaneous Information 1 ea NOTE XX ; Start 02/10/17 at 13:30 Glucose (Glutose) 15 gm Q15M PRN PO DECREASED GLUCOSE; Start 02/10/17 at 13:30 Glucose (Glutose) 22.5 gm Q15M PRN PO DECREASED GLUCOSE; Start 02/10/17 at 13:30 Dextrose (D50w Syringe) 25 ml Q15M PRN IV DECREASED GLUCOSE; Start 02/10/17 at 13:30 Dextrose (D50w Syringe) 50 ml Q15M PRN IV DECREASED GLUCOSE; Start 02/10/17 at 13:30 Glucagon (Glucagen) 1 mg Q15M PRN IM DECREASED GLUCOSE; Start 02/10/17 at 13:30 Glucose (Glutose) 15 gm Q15M PRN BUCCAL DECREASED GLUCOSE; Start 02/10/17 at 13: 30 Diagnostic Test (Pha) (Accu-Chek) 1 ea 02 XX ; Start 02/11/17 at 02:00 Isosorbide Mononitrate (Imdur) 30 mg BID PO Last administered on 02/13/17 10: 12; Admin Dose 30 MG; Start 02/10/17 at 21:00 Cephalexin (Keflex) 250 mg Q8 PO Last administered on 02/13/17 05:17; Admin Dose 250 MG; Start 02/12/17 at 14:00 Sodium Biphosphate/ Sodium Phosphate (Fleet Enema) 133 ml DAILY PRN [place] CONSTIPATION Last administered on 02/12/17 13:05; Admin Dose 133 ML; Start at 13:00 Lactulose (Enulose) 20 gm Q6H PRN PO CONSTIPATION; Start 02/12/17 at 13:00 Hydralazine HCl (Apresoline) 25 mg BID PO Last administered on 02/13/17 10:11 ; Admin Dose 25 MG; Start 02/12/17 at 21:00 Insulin Glargine (Lantus) 24 unit DAILY@20 SC ; Start 02/13/17 at 20:00 CHANELL TRAYLOR MD February 13, 2017 12:42
--- NOTE | 2017-02-13 14:01 | CONS ---
Date/Time of Note Date/Time of Note DATE: 02/13/17 TIME: 13:59 Assessment/Plan Assessment/Plan Additional Assessment/Plan Acute decompensated systolic and diastolic congestive heart failure Coronary artery disease Cardiomyopathy with ejection fraction 50% Acute kidney injury Hypertension Diabetes -Patient with worsening x-ray today even on diuretic regimen. Blood pressure on the lower end, would decrease dose of hydralazine and Coreg for more blood pressure room for diuresis. Would order CT chest. Continue aspirin and statin therapy. Consultation Date/Type/Reason Admit Date/Time February 10, 2017 at 16:12 Type of Consultation: cv Referring Provider: JUDY CARSON 24 HR Interval Summary Free Text/Dictation Patient still with shortness of breath but is fully dressed and wanting to leave the hospital. Exam/Review of Systems Vital Signs Vitals Vital Signs Date Time Temp Pulse Resp B/P Pulse Ox O2 Delivery O2 Flow Rate FiO2 02/13/17 11:44 97.5 64 20 98/64 97 02/13/17 04:23 2.0 02/12/17 19:21 Nasal Cannula Intake and Output 02/12/17 02/12/17 02/13/17 15:00 23:00 07:00 Intake Total 540 ml 240 ml Output Total 800 ml 550 ml Balance -260 ml -310 ml Exam No apparent distress Constitutional: alert, oriented Head: normocephalic Respiratory: other (Coarse breath sounds bilaterally, no wheezing, scattered rhonchi) Cardiovascular: other (S1-S2 heard), regular rate and rhythm Gastrointestinal: bowel sounds, non-tender, soft Extremities: edema Results Result Diagram: 02/13/17 0646 02/13/17 0646 Results 24 hrs Laboratory Tests Test 02/12/17 17:11 02/12/17 19:52 02/13/17 01:43 02/13/17 06:46 Bedside Glucose 183 226 H 178 White Blood Count 9.1 Red Blood Count 4.57 L Hemoglobin 13.0 L Hematocrit 41.0 L Mean Corpuscular Volume 89.7 Mean Corpuscular Hemoglobin 28.4 L Mean Corpuscular Hemoglobin Concent 31.7 L Red Cell Distribution Width 14.3 Platelet Count 135 L Mean Platelet Volume 10.4 Neutrophils % 66.8 Lymphocytes % 15.2 Monocytes % 10.9 Eosinophils % 5.7 Basophils % 0.6 Nucleated Red Blood Cells % 0.0 Neutrophils # 6.1 Lymphocytes # 1.4 Monocytes # 1.0 H Eosinophils # 0.5 Basophils # 0.1 Nucleated Red Blood Cells # 0.0 Sodium Level 139 Potassium Level 3.7 Chloride Level 93 L Carbon Dioxide Level 33 H Anion Gap 17 H Blood Urea Nitrogen 65 H Creatinine 3.23 H Glucose Level 141 Calcium Level 8.8 Magnesium Level 1.9 Test 02/13/17 07:59 02/13/17 08:55 02/13/17 12:22 02/13/17 13:16 Bedside Glucose 155 188 188 178 Medications Medications Current Medications Ondansetron HCl (Zofran Inj) 4 mg Q6H PRN IV NAUSEA AND/OR VOMITING; Start 02/10 at 13:00 Aspirin (Aspirin) 81 mg DAILY PO Last administered on 02/13/17 10:07; Admin Dose 81 MG; Start 02/11/17 at 09:00 Acetaminophen (Tylenol Tab) 650 mg Q6H PRN PO PAIN LEVEL 1-3 OR FEVER; Start at 13:00 Acetaminophen/ Hydrocodone Bitart ([place] (5/325)) 1 tab Q6H PRN PO PAIN LEVEL 4 -6 Last administered on 02/13/17 10:14; Admin Dose 1 TAB; Start 02/10/17 at 13: 00 Morphine Sulfate (morphine) 2 mg Q4H PRN IV PAIN LEVEL 7-10 Last administered on 02/13/17 12:17; Admin Dose 2 MG; Start 02/10/17 at 13:00 Magnesium Hydroxide (Milk Of Mag) 30 ml DAILY PRN PO CONSTIPATION Last administered on 02/11/17 22:45; Admin Dose 30 ML; Start 02/10/17 at 13:00 Bisacodyl (Dulcolax) 5 mg DAILY PRN PO CONSTIPATION Last administered on 09:57; Admin Dose 5 MG; Start 02/10/17 at 13:00 Heparin Sodium (Porcine) (Heparin (5000 Units/0.5 ml)) 5,000 unit Q8 SC Last administered on 02/13/17 05:21; Admin Dose 5,000 UNIT; Start 02/10/17 at 14:00 Atorvastatin Calcium (Lipitor) 40 mg DAILY PO Last administered on 02/13/17 10 :07; Admin Dose 40 MG; Start 02/11/17 at 09:00 Clopidogrel Bisulfate (plaVIX) 75 mg DAILY PO Last administered on 02/13/17 10 :07; Admin Dose 75 MG; Start 02/11/17 at 09:00 Donepezil HCl (Aricept) 10 mg DAILY PO Last administered on 02/13/17 10:08; Admin Dose 10 MG; Start 02/11/17 at 09:00 Tamsulosin HCl (Flomax) 0.4 mg DAILY PO Last administered on 02/13/17 10:08; Admin Dose 0.4 MG; Start 02/11/17 at 09:00 Linagliptin (Tradjenta) 5 mg DAILY PO Last administered on 02/13/17 10:08; Admin Dose 5 MG; Start 02/11/17 at 09:00 Hydralazine HCl (Apresoline) 10 mg Q4H PRN IV SBP>160 Last administered on 19:59; Admin Dose 10 MG; Start 02/10/17 at 13:00 Miscellaneous Information 1 ea NOTE XX ; Start 02/10/17 at 13:30 Glucose (Glutose) 15 gm Q15M PRN PO DECREASED GLUCOSE; Start 02/10/17 at 13:30 Glucose (Glutose) 22.5 gm Q15M PRN PO DECREASED GLUCOSE; Start 02/10/17 at 13:30 Dextrose (D50w Syringe) 25 ml Q15M PRN IV DECREASED GLUCOSE; Start 02/10/17 at 13:30 Dextrose (D50w Syringe) 50 ml Q15M PRN IV DECREASED GLUCOSE; Start 02/10/17 at 13:30 Glucagon (Glucagen) 1 mg Q15M PRN IM DECREASED GLUCOSE; Start 02/10/17 at 13:30 Glucose (Glutose) 15 gm Q15M PRN BUCCAL DECREASED GLUCOSE; Start 02/10/17 at 13: 30 Diagnostic Test (Pha) (Accu-Chek) 1 ea 02 XX ; Start 02/11/17 at 02:00 Isosorbide Mononitrate (Imdur) 30 mg BID PO Last administered on 02/13/17 10: 12; Admin Dose 30 MG; Start 02/10/17 at 21:00 Cephalexin (Keflex) 250 mg Q8 PO Last administered on 02/13/17 05:17; Admin Dose 250 MG; Start 02/12/17 at 14:00 Sodium Biphosphate/ Sodium Phosphate (Fleet Enema) 133 ml DAILY PRN [place] CONSTIPATION Last administered on 02/12/17t 13:05; Admin Dose 133 ML; Start at 13:00 Lactulose (Enulose) 20 gm Q6H PRN PO CONSTIPATION; Start 02/12/17 at 13:00 Insulin Glargine (Lantus) 24 unit DAILY@20 SC ; Start 02/13/17 at 20:00 Furosemide (Lasix) 40 mg DAILY PO ; Start 02/14/17 at 09:00 Carvedilol (Coreg) 12.5 mg BID PO ; Start 02/13/17 at 21:00; Status UNV Hydralazine HCl (Apresoline) 10 mg BID PO ; Start 02/13/17 at 21:00; Status UNV Balaji Vigil DO February 13, 2017 14:01
[2017-02-13] MEDS: NA PHOSPHATE/BIPHOS 133 ML ENEMA PR PRN (16:31)
[2017-02-13] MEDS ORDERED: INSULIN GLARGINE [LANtus] 3 ML PEN SC SCH (20:00)
[2017-02-14 00:28] VITALS: BP 141/68; RESP 18
[2017-02-14] MEDS: ACCUCHECK AT 2AM (Patients on SS coverage) XX SCH (01:34)
[2017-02-14 04:38] VITALS: BP 144/63; RESP 18
[2017-02-14] MEDS: HEPARIN 5,000 UNIT/0.5 ML VIAL SC SCH (05:04)
[2017-02-14] MEDS: CEPHALEXIN 250 MG CAP PO SCH (05:29)
[2017-02-14 07:42] VITALS: BP 133/60; RESP 20
[2017-02-14] MEDS: INSULIN ASPART [NOVOLOG] 3 ML PEN SC SCH ×2 (08:00)
[2017-02-14] MEDS: DONEPEZIL 10 MG TAB PO SCH (08:21)
[2017-02-14] MEDS: ASPIRIN 81 MG TAB PO SCH (08:21)
[2017-02-14] MEDS: ISOSORBIDE MONONITRATE(SR)30 MG TAB PO SCH (08:21)
[2017-02-14] MEDS: TAMSULOSIN (SR) 0.4 MG CAP PO SCH (08:21)
[2017-02-14] MEDS: CLOPIDOGREL 75 MG TAB PO SCH (08:22)
[2017-02-14] MEDS: ATORVASTATIN 40 MG TAB PO SCH (08:22)
[2017-02-14] MEDS: LINAGLIPTIN 5 MG TABLET PO SCH (08:22)
[2017-02-14] MEDS ORDERED: FUROSEMIDE 40 MG TAB PO SCH (09:00)
--- NOTE | 2017-02-14 10:23 | PN ---
Date/Time of Note Date/Time of Note DATE: 02/14/17 TIME: 10:19 Assessment/Plan VTE Prophylaxis VTE Prophylaxis Intervention: heparin Lines/Catheters IV [facility]from [facility] Urinary Cath still in place: No Assessment/Plan Chief Complaint/Hosp Course Assessment and plan 1. Chest pain. Serial troponins negative. Patient also noted with echocardiogram ejection fraction 50% with stage I diastolic dysfunction. Continue on beta-umesh and statin medication as well as antiplatelet therapy. Stable at present. 2. Acute respiratory failure. Secondary to CHF exacerbation. Seen on room air. Was seen with worse x-ray. CT scan of the chest was ordered but patient refused.. Continue on diuresis with monitoring of renal function. 3. Acute on chronic kidney disease. Medications to be renally dosed. Follow- up with nephrology recommendations. Awaiting renal panel follow-up 4. Accelerated hypertension. Continue antihypertensives and adjust as needed 4. Type 2 diabetes. Continue insulin. Will adjust as needed. Of note A1c was seen at 8.6. 6. Hyperkalemia. Noted with renal insufficiency. Provide with Kayexalate as needed. Follow-up with nephrology. Monitor level. Stable at present 7. Bilateral lower extremity edema. Patient with negative Doppler for DVT on bilateral lower extremities. 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 On ABX for possible cellulitis 8. Dyslipidemia. Continue on statin medication Disposition and plan: Patient refusing CT scan of the chest. Continue diuresis. Follow-up renal panel. Discharge when medically stable and cleared by consultants Discussed plan of care with Problems: Subjective 24 Hr Interval Summary Free Text/Dictation No apparent distress but does appear agitated ENT: no complaints Exam/Review of Systems Vital Signs Vitals Vital Signs Date Time Temp Pulse Resp B/P Pulse Ox O2 Delivery O2 Flow Rate FiO2 02/14/17 07:42 97.8 59 20 133/60 95 02/14/17 01:31 2.0 02/13/17 20:58 Nasal Cannula Intake and Output 02/13/17 02/13/17 02/14/17 15:00 23:00 07:00 Intake Total 600 ml Output Total 300 ml 800 ml Balance -300 ml -200 ml Exam Constitutional: alert, oriented Psych: anxiety Respiratory: diminished breath sounds Cardiovascular: other (regular rate) Gastrointestinal: non-tender, soft Musculoskeletal: nl gait and stance, swelling (bilateral lower extremities) Neurological: GRAINING 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 II-XII intact, nl mental status, nl speech Results Result Diagram: 02/13/17 0646 02/13/17 0646 Results 24 hrs Laboratory Tests Test 02/13/17 12:22 02/13/17 13:16 02/13/17 14:13 02/13/17 17:12 Bedside Glucose 188 178 150 125 Test 02/13/17 20:33 Bedside Glucose 290 H Medications Medications Current Medications Ondansetron HCl (Zofran Inj) 4 mg Q6H PRN IV NAUSEA AND/OR VOMITING; Start 02/10 at 13:00 Aspirin (Aspirin) 81 mg DAILY PO Last administered on 02/13/17 10:07; Admin Dose 81 MG; Start 02/11/17 at 09:00 Acetaminophen (Tylenol Tab) 650 mg Q6H PRN PO PAIN LEVEL 1-3 OR FEVER; Start at 13:00 Acetaminophen/ Hydrocodone Bitart ([place] (5/325)) 1 tab Q6H PRN PO PAIN LEVEL 4 -6 Last administered on 02/13/17 10:14; Admin Dose 1 TAB; Start 02/10/17 at 13: 00 Morphine Sulfate (morphine) 2 mg Q4H PRN IV PAIN LEVEL 7-10 Last administered on 02/13/17 12:17; Admin Dose 2 MG; Start 02/10/17 at 13:00 Magnesium Hydroxide (Milk Of Mag) 30 ml DAILY PRN PO CONSTIPATION Last administered on 02/11/17 22:45; Admin Dose 30 ML; Start 02/10/17 at 13:00 Bisacodyl (Dulcolax) 5 mg DAILY PRN PO CONSTIPATION Last administered on 09:57; Admin Dose 5 MG; Start 02/10/17 at 13:00 Heparin Sodium (Porcine) (Heparin (5000 Units/0.5 ml)) 5,000 unit Q8 SC Last administered on 02/13/17 20:42; Admin Dose 5,000 UNIT; Start 02/10/17 at 14:00 Atorvastatin Calcium (Lipitor) 40 mg DAILY PO Last administered on 02/13/17 10 :07; Admin Dose 40 MG; Start 02/11/17 at 09:00 Clopidogrel Bisulfate (plaVIX) 75 mg DAILY PO Last administered on 02/13/17 10 :07; Admin Dose 75 MG; Start 02/11/17 at 09:00 Donepezil HCl (Aricept) 10 mg DAILY PO Last administered on 02/13/17 10:08; Admin Dose 10 MG; Start 02/11/17 at 09:00 Tamsulosin HCl (Flomax) 0.4 mg DAILY PO Last administered on 02/13/17 10:08; Admin Dose 0.4 MG; Start 02/11/17 at 09:00 Linagliptin (Tradjenta) 5 mg DAILY PO Last administered on 02/13/17 10:08; Admin Dose 5 MG; Start 02/11/17 at 09:00 Hydralazine HCl (Apresoline) 10 mg Q4H PRN IV SBP>160 Last administered on 19:59; Admin Dose 10 MG; Start 02/10/17 at 13:00 Miscellaneous Information 1 ea NOTE XX ; Start 02/10/17 at 13:30 Glucose (Glutose) 15 gm Q15M PRN PO DECREASED GLUCOSE; Start 02/10/17 at 13:30 Glucose (Glutose) 22.5 gm Q15M PRN PO DECREASED GLUCOSE; Start 02/10/17 at 13:30 Dextrose (D50w Syringe) 25 ml Q15M PRN IV DECREASED GLUCOSE; Start 02/10/17 at 13:30 Dextrose (D50w Syringe) 50 ml Q15M PRN IV DECREASED GLUCOSE; Start 02/10/17 at 13:30 Glucagon (Glucagen) 1 mg Q15M PRN IM DECREASED GLUCOSE; Start 02/10/17 at 13:30 Glucose (Glutose) 15 gm Q15M PRN BUCCAL DECREASED GLUCOSE; Start 02/10/17 at 13: 30 Diagnostic Test (Pha) (Accu-Chek) 1 ea 02 XX ; Start 02/11/17 at 02:00 Isosorbide Mononitrate (Imdur) 30 mg BID PO Last administered on 02/13/17 20: 34; Admin Dose 30 MG; Start 02/10/17 at 21:00 Cephalexin (Keflex) 250 mg Q8 PO Last administered on 02/14/17 05:29; Admin Dose 250 MG; Start 02/12/17 at 14:00 Sodium Biphosphate/ Sodium Phosphate (Fleet Enema) 133 ml DAILY PRN [place] CONSTIPATION Last administered on 02/13/17 16:31; Admin Dose 133 ML; Start 02/12 at 13:00 Lactulose (Enulose) 20 gm Q6H PRN PO CONSTIPATION; Start 02/12/17 at 13:00 Insulin Glargine (Lantus) 24 unit DAILY@20 SC Last administered on 02/13/17 20 :39; Admin Dose 24 UNIT; Start 02/13/17 at 20:00 Furosemide (Lasix) 40 mg DAILY PO ; Start 02/14/17 at 09:00 Carvedilol (Coreg) 12.5 mg BID PO Last administered on 02/13/17 20:35; Admin Dose 12.5 MG; Start 02/13/17 at 21:00 Hydralazine HCl (Apresoline) 10 mg BID PO Last administered on 02/13/17 20:34 ; Admin Dose 10 MG; Start 02/13/17 at 21:00 SIMBA DUNCAN February 14, 2017 10:23
--- NOTE | 2017-02-14 11:34 | CONS ---
Date/Time of Note Date/Time of Note DATE: 02/14/17 TIME: 11:33 Assessment/Plan Assessment/Plan Additional Assessment/Plan 1. Acute kidney injury on possible chronic kidney disease secondary to cardiorenal syndrome in the setting of CHF exacerbations. 2. Acute pulmonary edema secondary to congestive heart failure exacerbation and renal failure. 3. Acute hyperkalemia secondary to acute kidney injury on chronic kidney disease. 4. 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 5. History of hypertension. 6. History of hyperlipidemia. 7. History of coronary artery disease, status post previous coronary stent placement. 8. History of diabetes mellitus type 2. 9. BPH on flomax PLAN: on hydralazine, coreg for BP control Uric acid 7.7 flomax for BPH Cr slightly improved with IV lasix 20mg bID for diuresis- now more alkalotic, lasix changed to PO Renal US showed Bilateral hyperechoic kidneys consistent with medical renal disease will continue to follow up Follow up with Dr.Kalpesh Traylor in 2 weeks after discharge Consultation Date/Type/Reason Admit Date/Time February 10, 2017 at 16:12 Initial Consult Date 02/10/2017 Type of Consultation: NEPHROLOGY Referring Provider: JUDY CARSON 24 HR Interval Summary Free Text/Dictation pt stable, no labs today, pt wants to go home Exam/Review of Systems Vital Signs Vitals Vital Signs Date Time Temp Pulse Resp B/P Pulse Ox O2 Delivery O2 Flow Rate FiO2 02/14/17 07:42 97.8 59 20 133/60 95 02/14/17 01:31 2.0 02/13/17 20:58 Nasal Cannula Intake and Output 02/13/17 02/13/17 02/14/17 15:00 23:00 07:00 Intake Total 600 ml Output Total 300 ml 800 ml Balance -300 ml -200 ml Exam GENERAL: Awake, alert, more stable today HEENT: The pupils are equal, round, reactive to light and accommodation. Extraocular muscles are intact. No sclerae icterus. NECK: Supple. Jugular venous distention up to the mid neck. No lymphadenopathy. LUNGS: Have bibasilar crackles present up to the mid lung zones. No wheezing. HEART: S1, S2, with regular rhythm, no murmur. ABDOMEN: Soft, nontender, nondistended. Bowel sounds are present. EXTREMITIES: There is 1 to 2+ pitting edema, no clubbing, no cyanosis. NEUROLOGICAL: Alert, awake x3, follows commands, cranial nerves II through XII intact. Strength sensations are intact. Reflexes are normal. PSYCHIATRIC: Appropriate affect and mood. SKIN: No rash. Results Result Diagram: 02/13/17 0646 02/13/17 0646 Results 24 hrs Laboratory Tests Test 02/13/17 12:22 02/13/17 13:16 02/13/17 14:13 02/13/17 17:12 Bedside Glucose 188 178 150 125 Test 02/13/17 20:33 Bedside Glucose 290 H Medications Medications Current Medications Ondansetron HCl (Zofran Inj) 4 mg Q6H PRN IV NAUSEA AND/OR VOMITING; Start 02/10 at 13:00 Aspirin (Aspirin) 81 mg DAILY PO Last administered on 02/13/17 10:07; Admin Dose 81 MG; Start 02/11/17 at 09:00 Acetaminophen (Tylenol Tab) 650 mg Q6H PRN PO PAIN LEVEL 1-3 OR FEVER; Start at 13:00 Acetaminophen/ Hydrocodone Bitart ([place] (5/325)) 1 tab Q6H PRN PO PAIN LEVEL 4 -6 Last administered on 02/13/17 10:14; Admin Dose 1 TAB; Start 02/10/17 at 13: 00 Morphine Sulfate (morphine) 2 mg Q4H PRN IV PAIN LEVEL 7-10 Last administered on 02/13/17 12:17; Admin Dose 2 MG; Start 02/10/17 at 13:00 Magnesium Hydroxide (Milk Of Mag) 30 ml DAILY PRN PO CONSTIPATION Last administered on 02/11/17 22:45; Admin Dose 30 ML; Start 02/10/17 at 13:00 Bisacodyl (Dulcolax) 5 mg DAILY PRN PO CONSTIPATION Last administered on 09:57; Admin Dose 5 MG; Start 02/10/17 at 13:00 Heparin Sodium (Porcine) (Heparin (5000 Units/0.5 ml)) 5,000 unit Q8 SC Last administered on 02/13/17 20:42; Admin Dose 5,000 UNIT; Start 02/10/17 at 14:00 Atorvastatin Calcium (Lipitor) 40 mg DAILY PO Last administered on 02/13/17 10 :07; Admin Dose 40 MG; Start 02/11/17 at 09:00 Clopidogrel Bisulfate (plaVIX) 75 mg DAILY PO Last administered on 02/13/17 10 :07; Admin Dose 75 MG; Start 02/11/17 at 09:00 Donepezil HCl (Aricept) 10 mg DAILY PO Last administered on 02/13/17 10:08; Admin Dose 10 MG; Start 02/11/17 at 09:00 Tamsulosin HCl (Flomax) 0.4 mg DAILY PO Last administered on 02/13/17 10:08; Admin Dose 0.4 MG; Start 02/11/17 at 09:00 Linagliptin (Tradjenta) 5 mg DAILY PO Last administered on 02/13/17 10:08; Admin Dose 5 MG; Start 02/11/17 at 09:00 Hydralazine HCl (Apresoline) 10 mg Q4H PRN IV SBP>160 Last administered on 19:59; Admin Dose 10 MG; Start 02/10/17 at 13:00 Miscellaneous Information 1 ea NOTE XX ; Start 02/10/17 at 13:30 Glucose (Glutose) 15 gm Q15M PRN PO DECREASED GLUCOSE; Start 02/10/17 at 13:30 Glucose (Glutose) 22.5 gm Q15M PRN PO DECREASED GLUCOSE; Start 02/10/17 at 13:30 Dextrose (D50w Syringe) 25 ml Q15M PRN IV DECREASED GLUCOSE; Start 02/10/17 at 13:30 Dextrose (D50w Syringe) 50 ml Q15M PRN IV DECREASED GLUCOSE; Start 02/10/17 at 13:30 Glucagon (Glucagen) 1 mg Q15M PRN IM DECREASED GLUCOSE; Start 02/10/17 at 13:30 Glucose (Glutose) 15 gm Q15M PRN BUCCAL DECREASED GLUCOSE; Start 02/10/17 at 13: 30 Diagnostic Test (Pha) (Accu-Chek) 1 ea 02 XX ; Start 02/11/17 at 02:00 Isosorbide Mononitrate (Imdur) 30 mg BID PO Last administered on 02/13/17 20: 34; Admin Dose 30 MG; Start 02/10/17 at 21:00 Cephalexin (Keflex) 250 mg Q8 PO Last administered on 02/14/17 05:29; Admin Dose 250 MG; Start 02/12/17 at 14:00 Sodium Biphosphate/ Sodium Phosphate (Fleet Enema) 133 ml DAILY PRN OR CONSTIPATION Last administered on 02/13/17 16:31; Admin Dose 133 ML; Start 02/12 at 13:00 Lactulose (Enulose) 20 gm Q6H PRN PO CONSTIPATION; Start 02/12/17 at 13:00 Insulin Glargine (Lantus) 24 unit DAILY@20 SC Last administered on 02/13/17 20 :39; Admin Dose 24 UNIT; Start 02/13/17 at 20:00 Furosemide (Lasix) 40 mg DAILY PO ; Start 02/14/17 at 09:00 Carvedilol (Coreg) 12.5 mg BID PO Last administered on 02/13/17 20:35; Admin Dose 12.5 MG; Start 02/13/17 at 21:00 Hydralazine HCl (Apresoline) 10 mg BID PO Last administered on 02/13/17 20:34 ; Admin Dose 10 MG; Start 02/13/17 at 21:00 CHANELL TRAYLOR MD February 14, 2017 11:34
[2017-02-14 12:29] VITALS: BP 146/71; RESP 20
== END 2017-02-14 13:30 | disposition left against medical advice (07) | DRG 291 ==
LOC: E/R 10:51 → MS4 11:49 → OBSVTOIN 16:12
PROVIDERS: ADMIT Family Medicine; ATTEND Family Medicine
DX: I13.0 Hypertensive heart and chronic kidney disease with heart failure and stage 1 through stage 4 chronic kidney disease, or unspecified chronic kidney disease (principal); J96.01 Acute respiratory failure with hypoxia; N18.4 Chronic kidney disease, stage 4 (severe); N17.9 Acute kidney failure, unspecified; I50.43 Acute on chronic combined systolic (congestive) and diastolic (congestive) heart failure; E11.22 Type 2 diabetes mellitus with diabetic chronic kidney disease; E87.5 Hyperkalemia; I42.9 Cardiomyopathy, unspecified; E66.01 Morbid (severe) obesity due to excess calories; I25.10 Atherosclerotic heart disease of native coronary artery without angina pectoris; E78.5 Hyperlipidemia, unspecified; N40.0 Benign prostatic hyperplasia without lower urinary tract symptoms; R07.9 Chest pain, unspecified; Z68.35 Body mass index [BMI] 35.0-35.9, adult; Z79.02 Long term (current) use of antithrombotics/antiplatelets; Z79.82 Long term (current) use of aspirin; Z79.4 Long term (current) use of insulin; Z95.5 Presence of coronary angioplasty implant and graft
CPT/HCPCS: 36415; 71010; 76775; 80048; 80053; 80061; 81001; 81003; 82550; 82553; 82570; 82962; 83036; 83735; 83880; 84100; 84153; 84154; 84300; 84439; 84443; 84484; 84560; 85025; 85610; 85730; 89190; 93005; 93306; 93970; 96374; 96375; 97162; G0378; J1940; J0360; J1644; J1815; J2270; J2405